=== PATIENT | male | born 2000 | race Caucasian/White ===

== ENCOUNTER 2025-03-30 17:41 | Observation (INO) | payer OTHER, SELFPAY ==
[2025-03-30] VITALS (11 sets, daily range): BP systolic 104–130; BP diastolic 68–91; PULSE 115–122; RESP 12–17; TEMP 36.6–36.8; O2SAT 96–100; BMI 16.2
--- NOTE | ~2025-03-30 | XR_ITS ---
EXAMINATION: XR chest 1V portable 03/30/2025 21:11 INDICATION: Altered mental status PROCEDURE: AP portable chest COMPARISON: No prior studies for comparison. FINDINGS: The lungs are clear. The cardiomediastinal silhouette is within normal limits. There are no pleural effusions. There is no pneumothorax suspected. IMPRESSION: 1: NO ACUTE CARDIOPULMONARY DISEASE. Reviewed, dictated and finalized at location O. KEN HANDLER
--- NOTE | ~2025-03-30 | CT_ITS ---
EXAMINATION: CT chest abdomen pelvis w con DATE: 04/03/2025 23:24 INDICATION: Right upper quadrant abdominal and esophageal pain TECHNIQUE: Computed tomography (CT) of the chest, abdomen, and pelvis was performed with 100 mL Omnipaque-350 intravenous contrast. Automated exposure control and iterative reconstruction technique were employed. The dose-length product was 296.53 mGy-cm. COMPARISON: CT abdomen and pelvis dated 11/29/2024 FINDINGS: CHEST CT: No pneumonia, pulmonary edema or other pulmonary infiltrates. No pleural effusion or pneumothorax. Heart size is normal. No pericardial effusion. Thoracic aorta is normal in caliber with no dissection. Again seen is diffuse wall thickening of the mid to distal esophagus consistent with esophagitis which may relate to reflux. No pathologically enlarged thoracic lymphadenopathy. Mild thoracic dextrocurvature with mild spondylosis. ABDOMEN/PELVIS CT: Liver, gallbladder, spleen, pancreas, left kidney and bilateral adrenal glands are normal. There are couple right renal cysts the larger measuring 2.3 cm. Bowels including the appendix are normal. Bladder is unremarkable. Small amount of nonspecific ascites in the deep pelvis. No pathologically enlarged abdominal or pelvic lymphadenopathy. Mild lumbar spondylosis. IMPRESSION: 1. Persistent diffuse wall thickening of the mid to distal esophagus suspicious for esophagitis which could be secondary to reflux. 2. No acute cardiopulmonary disease. 3. Small amount of nonspecific ascites in the deep pelvis. Reviewed, dictated and finalized at location A. NESS PROCESS REPRESENTATIVE
[2025-03-30 18:13] LABS: Hematocrit 47.8 % (42.0-52.0); Hemoglobin 16.4 g/dL (14.0-18.0); Immature Granulocyte Percent A 1.3 % (0-0.5); Lymphocytes Absolute Auto 1.70 K/mm3 (0.9-3.2); Mean Corpuscular HGB Conc 34.3 g/dl (32-36); Mean Corpuscular Hemoglobin 29.9 pg (26-34); Mean Corpuscular Volume 87.1 fl (80-100); Nucleated Red Blood Cells Absolute Auto 0.000 K/mm3 (0.0-0.012); Nucleated Red Blood Cells Perc 0.0 % (0.0-0.2); Platelet Count Result 436 k/mm3 (150-375); Red Blood Count 5.49 M/mm3 (4.6-6.20); White Blood Count 22.0 K/mm3 (4.5-10.0)
[2025-03-30] MEDS: SODIUM CHLORIDE 0.9% IV 1,000 ML 999 ML IV CONT ×2 (18:15→21:22)
[2025-03-30 18:28] LABS: Alanine Aminotransferase 24 U/L (6-50); Albumin Level 4.8 g/dL (3.5-5.1); Alkaline Phosphatase 134 U/L (38-126); Anion Gap 33 mmol/L (4-12); Aspartate Amino Transferase 25 U/L (17-59); Bilirubin,Total 0.6 mg/dL (0.2-1.3); Blood Urea Nitrogen 31 mg/dL (9-20); Calcium 9.3 mg/dL (8.4-10.2); Carbon Dioxide 8 mmol/L (22-30); Chloride 93 mmol/L (98-107); Estimated CRCL calculation 76 ml/min; Estimated Glomerular Filt Rate > 60; Glucose 623 mg/dL (65-110); Magnesium 2.0 mg/dL (1.6-2.3); Potassium 5.4 mmol/L (3.4-5.0); Sodium 134 mmol/L (137-145); Total Protein 8.2 g/dL (6.3-8.2)
--- NOTE | 2025-03-30 19:31 | ED_ITS ---
HPI - General Adult General Chief complaint: Recheck/Abnormal Lab/Rx Stated complaint: high BG Time Seen by Provider: 03/30/25 19:29 Source: patient and EMS Mode of arrival: EMS Limitations: no limitations History of Present Illness HPI narrative: Patient is homeless, complaining of nausea and vomiting and feeling ill today, type 1 diabetes on insulin, patient does not have a family physician. Patient is telling me that he gets his medicine through the emergency room. Patient is telling me that she been having upper respiratory viral infection for the last 2 weeks, did not see any medical provider for it. Patient main complaint is nausea and vomiting and not feeling well. Related Data Allergies Allergy/AdvReac Type Severity Reaction Status Date / Time Peanut butter Allergy Severe Swelling Uncoded 03/30/25 17:58 of Lip/Tongue/Throat Review of Systems 2 Review of Systems: All systems reviewed & are unremarkable except as noted in HPI and below Exam 2 Narrative: General appearance: Well-developed, well-nourished, lethargic, dry heaves Skin: Normal color Head: Normocephalic, nontraumatic Eyes: Clear conjunctiva ENT: Oropharynx normal, ears normal, nose normal Neck: Supple, nontender Chest and respiratory: Airway patent, no respiratory distress, no accessory muscle use Heart: Regular rate/rhythm Abdomen: Soft, nontender, no organomegaly, quiet bowel sounds Vascular: Normal peripheral pulses, normal capillary refill. Musculoskeletal: Normal range of motion, nontender back Neurologic: Alert and oriented ?3, DIRECTOR OF RETAIL MERCHANDISING is normal as tested, no gross motor deficit Course Consultations Director Of It Operations: I have discussed the care of this patient with the following provider: Dr suggs Vital Signs Vital signs: Vital Signs Temperature 36.6 C 03/30/25 17:31 Pulse Rate 115 H 03/30/25 17:31 Respiratory Rate 16 03/30/25 17:31 Blood Pressure 113/80 03/30/25 17:31 Pulse Oximetry 100 03/30/25 17:31 Oxygen Delivery Room Air 03/30/25 17:31 Temperature 36.6 C 03/30/25 17:31 Pulse Rate 116 H 03/30/25 21:00 Respiratory Rate 17 03/30/25 21:00 Blood Pressure 112/68 03/30/25 21:00 Pulse Oximetry 99 03/30/25 21:00 Oxygen Delivery Room Air 03/30/25 17:31 MDM MDM Narrative Medical decision making narrative: Patient came with DKA like symptoms Type 1 diabetes, noncompliance with medication Vital signs showing heart rate 115 otherwise within normal limit Physical examination showing lethargic patient with dry heaves holding vomiting bag Differential diagnosis: DKA, electrolyte imbalance, dehydration, urinary tract infection, pneumonia, noncompliance with medication, homelessness Blood workup today includes CBC, CMP, beta hydroxybutyric acid, hemoglobin A1c showed WBC 22, platelet 436, potassium 5.4, anion gap 33, glucose 623, phosphorus 5.7, bicarb 8, pH by venous blood gas is 7.23 Differential Diagnosis Differential Diagnosis: As above Medical Records I have reviewed the following patient records and this information was taken into consideration when formulating the assessment and plan.: previous labs, previous ER visits, previous hospitalizations and previous clinic visits Lab Data 03/30/25 17:59 03/30/25 17:59 Labs: Lab Results 03/30/25 03/30/25 03/30/25 Range/Units 17:45 17:59 19:51 WBC 22.0 H (4.5-10.0) K/mm3 RBC 5.49 (4.6-6.20) M/mm3 Hgb 16.4 (14.0-18.0) g/dL Hct 47.8 (42.0-52.0) % MCV 87.1 (80-100) fl MCH 29.9 (26-34) pg MCHC 34.3 (32-36) g/dl RDW 12.9 (11.5-14.5) % Plt Count 436 H (150-375) k/mm3 MPV 9.7 (7.4-10.4) fl Immature Gran % (Auto) 1.3 H (0-0.5) % Neut % (Auto) 85.9 H (45.5-73.1) % Lymph % (Auto) 7.7 L (18.3-44.2) % [place] % (Auto) 4.8 (2.6-8.5) % Eos % (Auto) 0.0 (0-4.4) % Baso % (Auto) 0.3 (0.2-1.2) % Lymph # (Auto) 1.70 (0.9-3.2) K/mm3 [place] # (Auto) 1.1 H (0.1-0.6) K/mm3 Eos # (Auto) 0.0 (0-0.3) K/mm3 Baso # (Auto) 0.1 (0.0-0.1) K/mm3 Abs Immat Gran (auto) 0.28 H (0.00-0.031) K/mm3 Absolute Neuts (auto) 18.9 H (1.3-6.7) K/mm3 Absolute Nucleated RBC 0.000 (0.0-0.012) K/mm3 Nucleated RBC % 0.0 (0.0-0.2) % Sodium 134 L (137-145) mmol/L Potassium 5.4 H (3.4-5.0) mmol/L Chloride 93 L (98-107) mmol/L Carbon Dioxide 8 L (22-30) mmol/L Anion Gap 33 H (4-12) mmol/L BUN 31 H (9-20) mg/dL Creatinine 1.11 (0.7-1.3) mg/dL Estim Creat Clear Calc 76 ml/min Estimated GFR > 60 (59 - ) Glucose 623 H* (65-110) mg/dL POC Capillary Glucose > 500 H* (65-105) mg/dl Hemoglobin A1c > 14.0 H (<5.7) % Calcium 9.3 (8.4-10.2) mg/dL Phosphorus 5.7 H (2.5-4.5) mg/dL Magnesium 2.0 (1.6-2.3) mg/dL Total Bilirubin 0.6 (0.2-1.3) mg/dL AST 25 (17-59) U/L ALT 24 (6-50) U/L Alkaline Phosphatase 134 H (38-126) U/L Total Protein 8.2 (6.3-8.2) g/dL Albumin 4.8 (3.5-5.1) g/dL Beta-Hydroxybutyrate/Acetoacetate 12.50 H (0.02-0.27) mmol/L Urine Color Yellow (Yellow) Urine Appearance Clear (Clear) Urine pH 5.0 (5.0-9.0) Ur Specific [place] 1.027 (1.001-1.035) Urine Protein Negative (Negative) mg/dL Urine Glucose (UA) 3+ H (Negative) mg/dL Urine Ketones 4+ H (Negative) mg/dL Ur Blood (Man) Negative (Negative) Urine Nitrate Negative (Negative) Urine Bilirubin Negative (Negative) Urine Urobilinogen 0.2 (<2.0) mg/dL Leukocyte Esterase Rfl Negative (Negative) ALKA/UL Influenza A (RT-PCR) Influenza B (RT-PCR) RSV (RT-PCR) SARS-CoV-2 RNA (RT-PCR) 03/30/25 03/30/25 03/30/25 Range/Units 20:40 21:43 21:53 WBC (4.5-10.0) K/mm3 RBC (4.6-6.20) M/mm3 Hgb (14.0-18.0) g/dL Hct (42.0-52.0) % MCV (80-100) fl MCH (26-34) pg MCHC (32-36) g/dl RDW (11.5-14.5) % Plt Count (150-375) k/mm3 MPV (7.4-10.4) fl Immature Gran % (Auto) (0-0.5) % Neut % (Auto) (45.5-73.1) % Lymph % (Auto) (18.3-44.2) % [place] % (Auto) (2.6-8.5) % Eos % (Auto) (0-4.4) % Baso % (Auto) (0.2-1.2) % Lymph # (Auto) (0.9-3.2) K/mm3 [place] # (Auto) (0.1-0.6) K/mm3 Eos # (Auto) (0-0.3) K/mm3 Baso # (Auto) (0.0-0.1) K/mm3 Abs Immat Gran (auto) (0.00-0.031) K/mm3 Absolute Neuts (auto) (1.3-6.7) K/mm3 Absolute Nucleated RBC (0.0-0.012) K/mm3 Nucleated RBC % (0.0-0.2) % Sodium Pending (137-145) mmol/L Potassium Pending (3.4-5.0) mmol/L Chloride Pending (98-107) mmol/L Carbon Dioxide Pending (22-30) mmol/L Anion Gap Pending (4-12) mmol/L BUN Pending (9-20) mg/dL Creatinine Pending (0.7-1.3) mg/dL Estim Creat Clear Calc Pending ml/min Estimated GFR Pending (59 - ) Glucose Pending (65-110) mg/dL POC Capillary Glucose 376 H 293 H (65-105) mg/dl Hemoglobin A1c (<5.7) % Calcium Pending (8.4-10.2) mg/dL Phosphorus Pending (2.5-4.5) mg/dL Magnesium Pending (1.6-2.3) mg/dL Total Bilirubin (0.2-1.3) mg/dL AST (17-59) U/L ALT (6-50) U/L Alkaline Phosphatase (38-126) U/L Total Protein (6.3-8.2) g/dL Albumin (3.5-5.1) g/dL Beta-Hydroxybutyrate/Acetoacetate (0.02-0.27) mmol/L Urine Color (Yellow) Urine Appearance (Clear) Urine pH (5.0-9.0) Ur Specific [place] (1.001-1.035) Urine Protein (Negative) mg/dL Urine Glucose (UA) (Negative) mg/dL Urine Ketones (Negative) mg/dL Ur Blood (Man) (Negative) Urine Nitrate (Negative) Urine Bilirubin (Negative) Urine Urobilinogen (<2.0) mg/dL Leukocyte Esterase Rfl (Negative) ALKA/UL Influenza A (RT-PCR) Pending Influenza B (RT-PCR) Pending RSV (RT-PCR) Pending SARS-CoV-2 RNA (RT-PCR) Pending ABG Data ABG results: 03/30/25 20:30 VBG pH 7.239 L* VBG pCO2 25.3 L* VBG pO2 56.8 H VBG HCO3 10.6 L O2 Delivery Device Room air O2 Liters/Min Not Reportable FiO2 21 Imaging Data Radiologist's impression: ITS Impressions Chest X-Ray 03/30/25 21:16 IMPRESSION: 1: NO ACUTE CARDIOPULMONARY DISEASE. Critical Care Time Critical Care Time Critical Care Time: Yes Time Type: Intermittent Initial evaluation, discuss w/ involved parties, attempting to gather old records: 10 minutes Documenting medical record: 10 minutes Review of results (EKG's, labs, imaging): 5 minutes Serial repeat bedside evaluation: 15 minutes Discussing case with multiple memebers of the care team and consultants: 10 minutes Total Critical Care Time: 50 Discharge Plan Discharge Clinical Impression: DKA, type 1 Patient Disposition: Still a Patient Condition: Stable Patient Language: Turkmen
[2025-03-30] MEDS: SODIUM CHLORIDE 0.9% IV 1,000 ML 1500 ML IV CONT (20:02)
[2025-03-30] MEDS: INSULIN HUMAN REGULAR (*BKC) 100 UNITS/ML 8 UNITS IV PUSH (20:04)
[2025-03-30 20:06] LABS: Add Urine Microscopic? NO; Appearance Urine Clear (Clear); Glucose Urine UA 3+ mg/dL (Negative); Leukocyte Esterase Ur Negative LEU/UL (Negative); Nitrate Urine Negative (Negative); Specific Grav Ur 1.027 (1.001-1.035)
--- NOTE | 2025-03-30 20:16 | PCRCNOTE ---
patient refused ABG. Provider notified. VBG ordered per provider
--- NOTE | 2025-03-30 20:23 | PC.NURSE ---
Patient actively vomiting dark emesis at intervals
[2025-03-30 20:33] LABS: Fractional Inspired Oxygen 21 %; HCO3 VBG 10.6 mEq/l (24.0-30.0); PO2 VBG 56.8 mmHg (35.0-45.0)
[2025-03-30 20:35] LABS: PCO2 VBG 25.3 mmHg (42.0-48.0); pH VBG 7.239 (7.300-7.400)
[2025-03-30] MEDS: INSULIN HUMAN REGULAR (*BKC) 100 UNITS in SODIUM CHLORIDE 0.9% IV 99 ML 5.5 UNITS IV CONT (20:39)
[2025-03-30] MEDS: ONDANSETRON INJ 4 MG/2 ML VIAL IV PUSH ×2 (20:42→23:40)
[2025-03-30 20:56] LABS: Beta-Hydroxybutyrate/Acetoace. 12.50 mmol/L (0.02-0.27); Hemoglobin A1C > 14.0 % (<5.7)
[2025-03-30 22:12] LABS: Anion Gap 17 mmol/L (4-12); Blood Urea Nitrogen 27 mg/dL (9-20); Calcium 8.4 mg/dL (8.4-10.2); Carbon Dioxide 16 mmol/L (22-30); Chloride 106 mmol/L (98-107); Estimated CRCL calculation 102 ml/min; Estimated Glomerular Filt Rate > 60; Glucose 291 mg/dL (65-110); Magnesium 1.8 mg/dL (1.6-2.3); Potassium 4.0 mmol/L (3.4-5.0); Sodium 139 mmol/L (137-145)
[2025-03-30 22:40] LABS: Influenza A QL RT-PCR Negative (Negative); Influenza B QL RT-PCR Negative (Negative); RSV RNA, RT-PCR Negative (Negative); SARS-CoV-2 RNA PCR Negative (Negative)
--- NOTE | 2025-03-30 23:06 | WPCEDHO ---
ED Hand Off Checklist All vitals saved:y IV Site documented:y All med administrations documented:y Triage Note Triage Note Patient is homeless-but staying 03/30/25 17:31 with a cousin. Called EMS with Nausea/vomiting-feeling sick. Type 1 DM- lethargic. EMS reports patient told them he took 44units Lantus insulin at 0100 and took 12units regular as a correction BGL reading HIGH. 4mg Zofran, 800ml LR [employer]MENT [employer]ER. Reports that he went drinking 2 nights ago. EMS reports that patient is lethargic but A/O x 4. Patient answers questions with prompting. Allergies Peanut butter Allergy (Severe, Uncoded 03/30/25 17:58) Swelling of Lip/Tongue/Throat Active Medications including assessments/comments Insulin Human Regular 100 (units/ Sodium Chloride) 100 mls @ 5 mls/hr IV CONT .Q20H REGI; Protocol Last Titration: 03/30/25 21:45 Dose: 5 units/hr, 5 mls/hr Documented By: ALOK Co-signed By: ALANIS Infusion/Titration Document 03/30/25 21:45 TLB (Rec: 03/30/25 21:47 TLB [id number]) Co-signed By Ester Braden, cardiology clinical consultant IV Site Peripheral Access Left Arm, Upper Intake 6.1 Cumulative Intake ( 6.1 bag) Cumulative Intake ( 6.1 Rx) Container Volume 93.9 Waste Amount 0 Dosing Dose Rate 5 Infusion Rate 5 Cumulative Dose 6.1 Increase/Decrease Decreased Elapsed Time Elapsed Time ( 1h 6m minutes) MAR IV Insulin Document 03/30/25 21:45 TLB (Rec: 03/30/25 21:47 TLB [id number]) Co-signed By Ester Braden, RIKKI Reason for Administration IV Insulin Infusion DKA Protocol - Reason for Administration IV Insulin Action/Checks IV Insulin Action Titrated - Blood Glucose Verified and Dose Adjusted per Guidelines DKA Trends Insulin Infusion - Blood Glucose Trend Downward DKA Trends Admin: 03/30/25 20:39 Dose: 5.5 units/hr, 5.5 mls/hr Documented By: ALOK Co-signed By: MMRanjeet Comments: Bedside glucose-376 Infusion/Titration Document 03/30/25 20:39 TLRanjeet (Rec: 03/30/25 20:41 TLB [id number]) Co-signed By Alma Gomez, cardiology clinical consultant IV Site Peripheral Access Left Arm, Upper Container Volume 100 Waste Amount 0 Dosing Dose Rate 5.5 Infusion Rate 5.5 Increase/Decrease Started Elapsed Time Elapsed Time ( 0m minutes) MAR IV Insulin Document 03/30/25 20:39 TLB (Rec: 03/30/25 20:41 TLB [id number]) Co-signed By Alma Gomez RN Reason for Administration IV Insulin Infusion DKA Protocol - Reason for Administration IV Insulin Action/Checks IV Insulin Action Initiated Administered/Completed Medications Discontinued Medications Sodium Chloride (Normal Saline Iv) 1,000 mls @ 999 mls/hr IV CONT .Q1H1M STA Stop: 03/30/25 18:56 Last Infusion: 03/30/25 19:20 Dose: Infused Documented By: Admin: 03/30/25 18:15 Dose: 999 mls/hr Documented By: ALOK Sodium Chloride (Normal Saline Iv) 1,000 mls @ 1,500 mls/hr IV CONT .Q40M STA Stop: 03/30/25 20:11 Last Infusion: 03/30/25 20:42 Dose: Infused Documented By: Admin: 03/30/25 20:02 Dose: 1,500 mls/hr Documented By: ALOK Sodium Chloride (Normal Saline Iv) Confirm Administered Dose 500 mls @ as directed .ROUTE .STK-MED ONE Stop: 03/30/25 19:58 Last Admin: 03/30/25 20:06 Dose: Not Given Documented By: TLB Non-Admin Reason: No Dose Required Sodium Chloride (Normal Saline Iv) 1,000 mls @ 999 mls/hr IV CONT .Q1H1M STA Stop: 03/30/25 22:01 Last Infusion: 03/30/25 22:23 Dose: Infused Documented By: Admin: 03/30/25 21:22 Dose: 999 mls/hr Documented By: ALOK Insulin Human Regular (Insulin Human Regular (*Bkc) 100 Units/Ml) 8 units IV PUSH ONCE ONE Stop: 03/30/25 19:33 Last Admin: 03/30/25 20:04 Dose: 8 units Documented By: TLB Co-signed By: MMB Ondansetron HCl (Ondansetron Inj 4 Mg/2 Ml Vial) 4 mg IV PUSH ONCE STA Stop: 03/30/25 20:35 Last Admin: 03/30/25 20:42 Dose: 4 mg Documented By: TLB Notes 03/30/25 20:23 Nurse Note by Sneha Mcdonald Patient actively vomiting dark emesis at intervals Initialized on 03/30/25 20:23 - END OF NOTE 03/30/25 20:16 Respiratory Therapy Note by Roxi Toney patient refused ABG. Provider notified. VBG ordered per provider Initialized on 03/30/25 20:16 - END OF NOTE Interventions/Assessments General Assessment Start: 03/30/25 17:20 Freq: Status: Active Protocol: Document 03/30/25 17:56 TLB (Rec: 03/30/25 17:56 TLB [id number]) GA Gastrointestinal Assessment Gastrointestinal Nausea,Vomiting Symptoms IV / Saline Lock, Insert Start: 03/30/25 17:20 Freq: Status: Active Protocol: Document 03/30/25 17:55 TLB (Rec: 03/30/25 17:55 TLB [id number]) IV Assessment Peripheral Access Left Arm, Upper IV Catheter Access Initiated Before Arrival Catheter Gauge 20 IV Insertion 1 Attempts IV Site Assessment WNL IV Care and Access Locked Maintenance IV / Saline Lock, Insert Start: 03/30/25 17:56 Freq: STAT Status: Active Protocol: Document 03/30/25 18:07 TLB (Rec: 03/30/25 18:07 TLB [id number]) IV Assessment Peripheral Access Left Arm, Upper IV Catheter Access Initiated Before Arrival Last Vital Signs Temperature 98.3 F 03/30/25 22:31 Pulse Rate 121 H 03/30/25 22:31 Respiratory Rate 17 03/30/25 22:31 Pulse Oximetry 98 03/30/25 22:31 Blood Pressure 120/83 03/30/25 22:31 Blood Pressure Mean 94 03/30/25 22:31 Oxygen Delivery Room Air 03/30/25 17:31 Weight 58.4 kg 03/30/25 17:31 Last Result - Abnormals Only WBC 22.0 K/mm3 (4.5-10.0) H 03/30/25 17:59 Plt Count 436 k/mm3 (150-375) H 03/30/25 17:59 Immature Gran % (Auto) 1.3 % (0-0.5) H 03/30/25 17:59 Neut % (Auto) 85.9 % (45.5-73.1) H 03/30/25 17:59 Lymph % (Auto) 7.7 % (18.3-44.2) L 03/30/25 17:59 [place] # (Auto) 1.1 K/mm3 (0.1-0.6) H 03/30/25 17:59 Abs Immat Gran (auto) 0.28 K/mm3 (0.00-0.031) H 03/30/25 17:59 Absolute Neuts (auto) 18.9 K/mm3 (1.3-6.7) H 03/30/25 17:59 VBG pH 7.239 (7.300-7.400) L* 03/30/25 20:30 VBG pCO2 25.3 mmHg (42.0-48.0) L* 03/30/25 20:30 VBG pO2 56.8 mmHg (35.0-45.0) H 03/30/25 20:30 VBG HCO3 10.6 mEq/l (24.0-30.0) L 03/30/25 20:30 Sodium 134 mmol/L (137-145) L 03/30/25 17:59 Potassium 5.4 mmol/L (3.4-5.0) H 03/30/25 17:59 Chloride 93 mmol/L (98-107) L 03/30/25 17:59 Carbon Dioxide 16 mmol/L (22-30) L 03/30/25 21:53 Anion Gap 17 mmol/L (4-12) H 03/30/25 21:53 BUN 27 mg/dL (9-20) H 03/30/25 21:53 Glucose 291 mg/dL (65-110) H 03/30/25 21:53 POC Capillary Glucose 244 mg/dl (65-105) H 03/30/25 23:02 Hemoglobin A1c > 14.0 % (<5.7) H 03/30/25 17:59 Phosphorus 5.7 mg/dL (2.5-4.5) H 03/30/25 17:59 Alkaline Phosphatase 134 U/L (38-126) H 03/30/25 17:59 Beta-Hydroxybutyrate/Acetoacetate 12.50 mmol/L (0.02-0.27) H 03/30/25 17:59 Urine Glucose (UA) 3+ mg/dL (Negative) H 03/30/25 19:51 Urine Ketones 4+ mg/dL (Negative) H 03/30/25 19:51 Most Recent Suicide Severity Rating Suicide Severity Rating NO RISK INDICATED 03/30/25 17:31
--- NOTE | 2025-03-30 23:10 | P.HP_ITS ---
H&P: HPI History of Present Illness Date/Time: 03/30/25 23:10 Chief Complaint: Feeling sick Narrative: 24-year-old homeless male with past medical history of type 1 diabetes mellitus chronically uncontrolled diabetes mellitus due presented to the ER via EMS due to feeling ill. Patient reportedly took 44 units of Lantus and 12 units of shorter acting insulin at 13:00 today. His blood glucose on Accu-Chek for EMS was reading high. He received 800 mL of LR and Zofran prior to arrival to the hospital. He when out drinking 2 nights ago. The patient does not have a family physician. He is homeless but with staying with a friend. He has been getting his medications by visiting ERs. The patient arrived to the ICU with discharge papers from [facility] which demonstrates he is post be on medications including Lantus 15 units nightly, moderate sliding scale insulin and 3 units of lispro with meals. He is also supposed be on gabapentin 400 mg b.i.d. prazosin 3 mg q.h.s. venlafaxine. All of this information was obtained from ER documentation and review of the records from [place]. The patient refuses to answer any questions. He states that he does not want to be bothered and initially was refusing all exam whatsoever. He reluctantly agreed to allow we did listen to his heart and lungs. He refused to answer any questions despite multiple attempts of educating the patient about the importance of a complete exam. Initially when I went to evaluate the patient the 1st time he did answer orientation questions. He was oriented to person place and time but he told me that he was 26 years old. The patient was oriented but intermittently answering questions in a bizarre fashion. Stating that he needed to ?turn off the game? or other random phrases. Review of Systems 2 Review of Systems: Review of systems unobtainable due to lack of patient cooperation [facility] Past Medical History Medical History (Updated 03/31/25 @ 00:41 by Jeniffer Wu DO) Uncontrolled type 1 diabetes mellitus Surgical History Surgical History (Updated 03/31/25 @ 03:53 by Jeniffer Wu DO) Surgical history unknown Family History Family History (Updated 03/31/25 @ 03:54 by Jeniffer Wu DO) Other Unknown family medical history Social History Social History (Updated 03/31/25 @ 03:54 by Jeniffer Wu DO) Social History: The patient is homeless. His urine drug screen was negative but he refuses answer questions as to substance use. He did inform the ER that he has been drinking 2 days ago. Alcohol intake: current Substance use type: unknown Spiritual care concerns: No Meds Home Medications and Allergies Allergies Allergy/AdvReac Type Severity Reaction Status Date / Time adhesive tape Allergy Rash Unverified 03/30/25 23:52 Peanut butter Allergy Severe Swelling Uncoded 03/30/25 17:58 of Lip/Tongue/Throat Vital Signs Vital Signs - 24 hr 03/30/25 17:31 03/30/25 18:00 03/30/25 18:30 Temperature 97.8 F Pulse Rate 115 H 116 H 118 H Respiratory Rate 16 14 12 Blood Pressure 113/80 104/79 130/83 Pulse Oximetry 100 100 100 Oxygen Delivery Room Air 03/30/25 19:00 03/30/25 20:00 03/30/25 21:00 Temperature Pulse Rate 121 H 117 H 117 H Respiratory Rate 15 15 13 Blood Pressure 127/91 H 120/80 112/68 Pulse Oximetry 99 99 98 Oxygen Delivery 03/30/25 21:00 03/30/25 21:01 03/30/25 21:31 Temperature Pulse Rate 116 H 116 H 115 H Respiratory Rate 17 12 14 Blood Pressure 112/68 112/68 114/79 Pulse Oximetry 99 99 Oxygen Delivery 03/30/25 22:16 03/30/25 22:31 Temperature 98.3 F Pulse Rate 119 H 121 H Respiratory Rate 15 17 Blood Pressure 120/83 Pulse Oximetry 98 98 Oxygen Delivery Exam 2 Narrative: Weight 50.4 kg BMI 15.7 Const: Other: This several, poor hygiene, cachectic, patient is lying on his right side in the semi flower position the patient smell strongly of ketones and body odor HENMT: Other: Lips are dry, head is normocephalic atraumatic on visual exam further exam not possible given patient's refusal Resp: Other: No tachypnea, no increased work of breathing, decreased breath sounds at the bases posteriorly likely due to lack of effort Cardio: Other: Sinus tachycardia, no murmur, otherwise unable to assess as patient refuses the remainder of physical exam GI: Other: Concave, Normoactive bowel sounds otherwise unable to assess due to lack of cooperation Skin: Other: Patient has discoloration of his abdomen abdominal wall pink in blue in color possibly staining due to dyes, patient has dirt under his fingernails skin is warm to touch Neuro: Other: Alert oriented to person place and time, refuses to answer questions regarding situation, believes that he is 26 years old, speech is clear, no obvious facial asymmetry but exam extremely limited, the patient was unstable on his feet when he stood up to use the bedside commode but gait not evaluated Extrem: Other: Patient has generalized muscle wasting, unable to assess feet or strength Psych: Other: Hostile, belligerent, uncooperative Results Labs Labs: Laboratory Tests 03/30/25 17:59 03/30/25 21:53 03/30/25 03/30/25 03/30/25 17:45 17:59 19:51 WBC 22.0 H RBC 5.49 Hgb 16.4 Hct 47.8 MCV 87.1 MCH 29.9 MCHC 34.3 RDW 12.9 Plt Count 436 H MPV 9.7 Immature Gran % (Auto) 1.3 H Neut % (Auto) 85.9 H Lymph % (Auto) 7.7 L [place] % (Auto) 4.8 Eos % (Auto) 0.0 Baso % (Auto) 0.3 Lymph # (Auto) 1.70 Sequoyah # (Auto) 1.1 H Eos # (Auto) 0.0 Baso # (Auto) 0.1 Abs Immat Gran (auto) 0.28 H Absolute Neuts (auto) 18.9 H Absolute Nucleated RBC 0.000 Nucleated RBC % 0.0 VBG pH VBG pCO2 VBG pO2 VBG HCO3 O2 Delivery Device O2 Liters/Min FiO2 Sodium 134 L Potassium 5.4 H Chloride 93 L Carbon Dioxide 8 L Anion Gap 33 H BUN 31 H Creatinine 1.11 Estim Creat Clear Calc 76 Estimated GFR > 60 Glucose 623 H* POC Capillary Glucose > 500 H* Hemoglobin A1c > 14.0 H Calcium 9.3 Phosphorus 5.7 H Magnesium 2.0 Total Bilirubin 0.6 AST 25 ALT 24 Alkaline Phosphatase 134 H Total Protein 8.2 Albumin 4.8 Beta-Hydroxybutyrate/Acetoacetate 12.50 H Urine Color Yellow Urine Appearance Clear Urine pH 5.0 Ur Specific [place] 1.027 Urine Protein Negative Urine Glucose (UA) 3+ H Urine Ketones 4+ H Ur Blood (Man) Negative Urine Nitrate Negative Urine Bilirubin Negative Urine Urobilinogen 0.2 Leukocyte Esterase Rfl Negative Influenza A (RT-PCR) Influenza B (RT-PCR) RSV (RT-PCR) SARS-CoV-2 RNA (RT-PCR) 03/30/25 03/30/25 03/30/25 20:30 20:40 21:43 WBC RBC Hgb Hct MCV MCH MCHC RDW Plt Count MPV Immature Gran % (Auto) Neut % (Auto) Lymph % (Auto) [place] % (Auto) Eos % (Auto) Baso % (Auto) Lymph # (Auto) [place] # (Auto) Eos # (Auto) Baso # (Auto) Abs Immat Gran (auto) Absolute Neuts (auto) Absolute Nucleated RBC Nucleated RBC % VBG pH 7.239 L* VBG pCO2 25.3 L* VBG pO2 56.8 H VBG HCO3 10.6 L O2 Delivery Device Room air O2 Liters/Min Not Reportable FiO2 21 Sodium Potassium Chloride Carbon Dioxide Anion Gap BUN Creatinine Estim Creat Clear Calc Estimated GFR Glucose POC Capillary Glucose 376 H 293 H Hemoglobin A1c Calcium Phosphorus Magnesium Total Bilirubin AST ALT Alkaline Phosphatase Total Protein Albumin Beta-Hydroxybutyrate/Acetoacetate Urine Color Urine Appearance Urine pH Ur Specific Arthur Urine Protein Urine Glucose (UA) Urine Ketones Ur Blood (Man) Urine Nitrate Urine Bilirubin Urine Urobilinogen Leukocyte Esterase Rfl Influenza A (RT-PCR) Influenza B (RT-PCR) RSV (RT-PCR) SARS-CoV-2 RNA (RT-PCR) 03/30/25 03/30/25 21:53 23:02 WBC RBC Hgb Hct MCV MCH MCHC RDW Plt Count MPV Immature Gran % (Auto) Neut % (Auto) Lymph % (Auto) [place] % (Auto) Eos % (Auto) Baso % (Auto) Lymph # (Auto) [place] # (Auto) Eos # (Auto) Baso # (Auto) Abs Immat Gran (auto) Absolute Neuts (auto) Absolute Nucleated RBC Nucleated RBC % VBG pH VBG pCO2 VBG pO2 VBG HCO3 O2 Delivery Device O2 Liters/Min FiO2 Sodium 139 Potassium 4.0 Chloride 106 Carbon Dioxide 16 L Anion Gap 17 H BUN 27 H Creatinine 0.81 Estim Creat Clear Calc 102 Estimated GFR > 60 Glucose 291 H POC Capillary Glucose 244 H Hemoglobin A1c Calcium 8.4 Phosphorus 2.7 Magnesium 1.8 Total Bilirubin AST ALT Alkaline Phosphatase Total Protein Albumin Beta-Hydroxybutyrate/Acetoacetate Urine Color Urine Appearance Urine pH Ur Specific Arthur Urine Protein Urine Glucose (UA) Urine Ketones Ur Blood (Man) Urine Nitrate Urine Bilirubin Urine Urobilinogen Leukocyte Esterase Rfl Influenza A (RT-PCR) Negative Influenza B (RT-PCR) Negative RSV (RT-PCR) Negative SARS-CoV-2 RNA (RT-PCR) Negative Impressions Chest X-Ray 03/30/25 21:16 IMPRESSION: 1: NO ACUTE CARDIOPULMONARY DISEASE. Telemetry reviewed and interpreted demonstrated sinus tachycardia Attestation: I personally reviewed all lab results Critical Care Time Critical Care Time Critical Care Time: Yes Initial evaluation, discuss w/ involved parties, attempting to gather old records: 10 minutes Documenting medical record: 10 minutes Review of results (EKG's, labs, imaging): 15 minutes Serial repeat bedside evaluation: N/A Discussing case with multiple memebers of the care team and consultants: 5 minutes Total Critical Care Time: 40 Critical Care Time Overview: Due to a high probability of clinically significant, life threatening deterioration, the patient required my highest level of preparedness to intervene emergently and I personally spent this critical care time directly and personally managing the patient. This critical care time included obtaining a history; examining the patient; pulse oximetry; ordering and review of studies; arranging urgent treatment with development of a management plan; evaluation of patient's response to treatment; frequent reassessment; and discussions with other providers. It was exclusive of separately billable procedures and treating other patients and teaching time. Please see Assessment and Plan section and the rest of the note for further information on patient assessment and treatment. Quality VTE Prophylaxis VTE prophylaxis: pharmacologic ordered (Lovenox 40 mg subQ daily) Assessment and Plan Assessment and plan (1) DKA, type 1: Qualifiers: Diabetes mellitus complication detail: without coma Qualified Code(s): E10.10 - Type 1 diabetes mellitus with ketoacidosis without coma Code(s): E10.10 - Type 1 diabetes mellitus with ketoacidosis without coma Status: Acute (2) Severe protein-calorie malnutrition: Code(s): E43 - Unspecified severe protein-calorie malnutrition Status: Acute (3) Homeless single person: Code(s): Z59.00 - Homelessness unspecified Status: Acute Plan Patient has DKA with chronically uncontrolled diabetes from noncompliance with medical follow-up. Ketosis is likely multifactorial with component of starvation ketosis and diabetic ketosis. Patient has been admitted to the ICU and placed on insulin drip and IV fluids with adjustments per standard DKA protocol. Will monitor serial electrolyte panels for monitoring until gap closure and normalization of serum bicarb. community nutrition educator has been consulted. Merchandise Pickup/Receiving Associate has been consulted. Will monitor strict I&O's. Patient has severe protein calorie malnutrition and muscle wasting due to what is likely chronic ketotic state and uncontrolled diabetes. Dietitian has been consulted and the importance of compliance with diabetic medications has been discussed in detail. Care coordination has been consulted persistence with financial an medication resources. Patient does have leukocytosis and tachycardia likely due to volume depletion/dehydration. Although leukocytosis is higher than expect just from dehydration. Will monitor closely for other signs of infection. Chest x-ray was negative for pulmonary process. UA was negative for evidence of infection. Hospitalist MIPS Advance Care Plan I have confirmed that the patient's Advanced Care Plan is present, code status is documented, or surrogate decision maker is listed in patient medical record.: Yes Medication Reconciliation I have utilized all available resources to obtain, update and review the patients current medications (includes all prescriptions, OTC, herbals, cannabis, and nutritional supplements).: Yes
[2025-03-30] MEDS: KCL 20 MEQ/D5/0.45% SOD CHL 1,000 ML 150 ML IV CONT (23:35)
--- NOTE | 2025-03-30 23:50 | ADMGEN ---
This patient, Denton Ring, was admitted to Intensive Care Unit-4. Patient/family oriented to hospital policies and general routines including ID bracelet, bed and alarms, visiting hours, pain management, procedures, bathroom and other care routines, personal items, smoking policy, room service/diet, and visiting hours. Information on how to activate the Rapid Response Team has been discussed. Patient/Family are encouraged to report perceived risks to care and to ask questions if they do not understand what they are told or what they should do. Received report from Sneha @[id number], patient arrived at 2325 via stretcher with Rn at bedside.
[2025-03-31] VITALS (18 sets, daily range): BP systolic 103–135; BP diastolic 64–87; PULSE 74–120; RESP 11–18; TEMP 36.3–37.6; O2SAT 95–100; BMI 16.2
[2025-03-31 01:47] LABS: Cannabinoid Screen Urine Negative (Negative)
[2025-03-31 01:50] LABS: MRSA (PCR) NOT DETECTED (NOT DETECTE)
--- NOTE | 2025-03-31 02:36 | PC.NURSE ---
Patient refusing to wear pulse oximetry device.
[2025-03-31 02:40] LABS: Hematocrit 37.7 % (42.0-52.0); Hemoglobin 13.4 g/dL (14.0-18.0); Immature Granulocyte Percent A 0.6 % (0-0.5); Lymphocytes Absolute Auto 2.64 K/mm3 (0.9-3.2); Mean Corpuscular HGB Conc 35.5 g/dl (32-36); Mean Corpuscular Hemoglobin 29.6 pg (26-34); Mean Corpuscular Volume 83.4 fl (80-100); Nucleated Red Blood Cells Absolute Auto 0.000 K/mm3 (0.0-0.012); Nucleated Red Blood Cells Perc 0.0 % (0.0-0.2); Platelet Count Result 366 k/mm3 (150-375); Red Blood Count 4.52 M/mm3 (4.6-6.20); White Blood Count 16.3 K/mm3 (4.5-10.0)
[2025-03-31 03:10] LABS: Anion Gap 9 mmol/L (4-12); Blood Urea Nitrogen 22 mg/dL (9-20); Calcium 8.7 mg/dL (8.4-10.2); Carbon Dioxide 20 mmol/L (22-30); Chloride 109 mmol/L (98-107); Estimated CRCL calculation 118 ml/min; Estimated Glomerular Filt Rate > 60; Glucose 195 mg/dL (65-110); Potassium 4.1 mmol/L (3.4-5.0); Sodium 138 mmol/L (137-145)
[2025-03-31] MEDS: KCL 20 MEQ/D5/0.45% SOD CHL 1,000 ML 150 ML IV CONT (06:04)
[2025-03-31] MEDS: INSULIN GLARGINE (*BKC) 100 UNITS/ML 15 UNITS SUB-Q (07:49)
[2025-03-31] MEDS: ONDANSETRON INJ 4 MG/2 ML VIAL IV PUSH (08:02)
[2025-03-31] MEDS: ENOXAPARIN 40 MG/0.4 ML SYRINGE SUB-Q (08:05)
[2025-03-31 08:17] LABS: Hematocrit 39.5 % (42.0-52.0); Hemoglobin 14.0 g/dL (14.0-18.0); Mean Corpuscular HGB Conc 35.4 g/dl (32-36); Mean Corpuscular Hemoglobin 29.7 pg (26-34); Mean Corpuscular Volume 83.9 fl (80-100); Platelet Count Result 373 k/mm3 (150-375); Red Blood Count 4.71 M/mm3 (4.6-6.20); White Blood Count 16.5 K/mm3 (4.5-10.0)
[2025-03-31] MEDS: INSULIN GLARGINE (*BKC) 100 UNITS/ML 20 UNITS SUB-Q (08:19)
--- NOTE | 2025-03-31 08:20 | P.CONIN_ITS ---
Assessment and Plan Assessment and plan (1) Homeless single person: Code(s): Z59.00 - Homelessness unspecified Status: Acute (2) Severe protein-calorie malnutrition: Code(s): E43 - Unspecified severe protein-calorie malnutrition Status: Acute (3) DKA, type 1: Qualifiers: Diabetes mellitus complication detail: without coma Qualified Code(s): E10.10 - Type 1 diabetes mellitus with ketoacidosis without coma Code(s): E10.10 - Type 1 diabetes mellitus with ketoacidosis without coma Status: Acute Plan 1. Neurologically: Patient is somnolent but arousable poorly cooperative. Nonfocal 2. Cardiovascular sinus rhythm. 3. Respiratory: Upper respiratory symptoms. No definite evidence of bacterial infection most likely this is a viral process. No antibiotics prescribed. He is afebrile 4. GI: No further nausea vomiting. Will start p.o. intake. 5. and renal: Volume depletion seems to have resolved. Will discontinue IV fluids once he starts taking p.o. 6. Endocrine: DKA due to noncompliance. Will restart Lantus and sliding scale insulin. Discontinue insulin drip. 7. DVT prophylaxis: Lovenox 8. Hematologically: Leukocytosis is present which is expected. Hemoglobin and platelet count are normal. 9. Id: Upper respiratory symptoms most likely viral. No definite evidence of bacterial infection. Chest x-ray did not show any infiltrates Time Spent with Patient Time with patient: 45 - 74 minutes Case Technician Consult Note Consult date: 03/31/25 Time Seen: 08:20 Reason for consult: Diabetes ketoacidosis, volume depletion HPI: Denton Ring is a 24 year old male who is essentially homeless and does not have assets to buy insulin. He is constantly admitted because of DKA. His poor historian therefore the history is limited. Apparently was recently discharged from another facility after developing DKA. He complains of having obstructive nasal passages for a few days. Denies any cough or shortness of breath. He did have some anorexia nausea vomiting recent for which he came to the emergency room. Symptoms since to have subsided and he wants to eat now Review of Systems 2 Review of Systems: Patient is not cooperative with symptoms therefore limited. He complains of ?stuffy ?nasal passages PMFSH Past Medical History Medical History (Updated 03/31/25 @ 00:41 by Jeniffer Wu DO) Uncontrolled type 1 diabetes mellitus Surgical History Surgical History (Updated 03/31/25 @ 03:53 by Jeniffer Wu DO) Surgical history unknown Family History Family History (Updated 03/31/25 @ 03:54 by Jeniffer Wu DO) Other Unknown family medical history Social History Social History (Updated 03/31/25 @ 03:54 by Jeniffer Wu DO) Social History: The patient is homeless. His urine drug screen was negative but he refuses answer questions as to substance use. He did inform the ER that he has been drinking 2 days ago. Alcohol intake: current Substance use type: unknown Spiritual care concerns: No Meds Home Medications and Allergies Allergies Allergy/AdvReac Type Severity Reaction Status Date / Time peanut Allergy Severe Swelling Verified 03/31/25 07:28 of Lip/Tongue/Throat adhesive tape Allergy Rash Unverified 03/30/25 23:52 Vital Signs Vital Signs - 24 hr 03/30/25 17:31 03/30/25 18:00 03/30/25 18:30 Temperature 97.8 F Pulse Rate 115 H 116 H 118 H Respiratory Rate 16 14 12 Blood Pressure 113/80 104/79 130/83 Pulse Oximetry 100 100 100 Oxygen Delivery Room Air 03/30/25 19:00 03/30/25 20:00 03/30/25 21:00 Temperature Pulse Rate 121 H 117 H 117 H Respiratory Rate 15 15 13 Blood Pressure 127/91 H 120/80 112/68 Pulse Oximetry 99 99 98 Oxygen Delivery 03/30/25 21:00 03/30/25 21:01 03/30/25 21:31 Temperature Pulse Rate 116 H 116 H 115 H Respiratory Rate 17 12 14 Blood Pressure 112/68 112/68 114/79 Pulse Oximetry 99 99 Oxygen Delivery 03/30/25 22:16 03/30/25 22:31 03/30/25 23:32 Temperature 98.3 F Pulse Rate 119 H 121 H 122 H Respiratory Rate 15 17 13 Blood Pressure 120/83 114/69 Pulse Oximetry 98 98 96 Oxygen Delivery 03/31/25 00:00 03/31/25 00:00 03/31/25 01:00 Temperature 99.6 F Pulse Rate 118 H 117 H 120 H Respiratory Rate 13 15 Blood Pressure 128/80 133/76 Pulse Oximetry 96 96 Oxygen Delivery 03/31/25 02:00 03/31/25 02:00 03/31/25 04:00 Temperature Pulse Rate 112 H 114 H 109 H Respiratory Rate 14 Blood Pressure 106/64 Pulse Oximetry 95 Oxygen Delivery 03/31/25 04:00 03/31/25 05:00 03/31/25 06:00 Temperature Pulse Rate 110 H 106 H 105 H Respiratory Rate 13 16 Blood Pressure 110/65 120/64 Pulse Oximetry Oxygen Delivery 03/31/25 06:00 03/31/25 07:00 Temperature Pulse Rate 104 H 102 H Respiratory Rate 13 11 L Blood Pressure 108/70 109/81 Pulse Oximetry Oxygen Delivery Exam 2 Narrative: He is somnolent and poorly poor cooperative HENMT: Mouth: Yes dry mucous membranes Eyes: Pupils: Equal, round and reactive pupils present Neck: Neck: no JVD Resp: Effort & Inspection: normal respiratory effort Auscultation: clear to auscultation bilaterally Cardio: Rate: regular rate GI: GI Palp: Yes Soft to palpation Skin: General skin exam: normal color Neuro: Other: Somnolent but interactive and moving symmetrically Extrem: General: normal to inspection Psych: Mental Status: mental status grossly normal Results Labs 03/31/25 08:12 03/31/25 02:35 Labs: Short CBC 03/30/25 03/31/25 03/31/25 Range/Units 17:59 02:35 08:12 WBC 22.0 H 16.3 H 16.5 H (4.5-10.0) K/mm3 Hgb 16.4 13.4 L D 14.0 (14.0-18.0) g/dL Hct 47.8 37.7 L 39.5 L (42.0-52.0) % Plt Count 436 H 366 373 (150-375) k/mm3 BMP 03/30/25 03/30/25 03/31/25 17:59 21:53 02:35 Sodium 134 L 139 138 Potassium 5.4 H 4.0 4.1 Chloride 93 L 106 109 H Carbon Dioxide 8 L 16 L 20 L BUN 31 H 27 H 22 H Creatinine 1.11 0.81 0.72 Glucose 623 H* 291 H 195 H Calcium 9.3 8.4 8.7 Liver Function 03/30/25 Range/Units 17:59 Total Bilirubin 0.6 (0.2-1.3) mg/dL AST 25 (17-59) U/L ALT 24 (6-50) U/L Alkaline Phosphatase 134 H (38-126) U/L Albumin 4.8 (3.5-5.1) g/dL Urine 03/30/25 Range/Units 19:51 Urine Color Yellow (Yellow) Urine Appearance Clear (Clear) Urine pH 5.0 (5.0-9.0) Ur Specific [place] 1.027 (1.001-1.035) Urine Protein Negative (Negative) mg/dL Urine Glucose (UA) 3+ H (Negative) mg/dL
[2025-03-31 08:43] LABS: Alanine Aminotransferase 16 U/L (6-50); Albumin Level 3.8 g/dL (3.5-5.1); Alkaline Phosphatase 112 U/L (38-126); Anion Gap 6 mmol/L (4-12); Aspartate Amino Transferase 19 U/L (17-59); Bilirubin,Total 0.4 mg/dL (0.2-1.3); Blood Urea Nitrogen 19 mg/dL (9-20); Calcium 8.9 mg/dL (8.4-10.2); Carbon Dioxide 24 mmol/L (22-30); Chloride 108 mmol/L (98-107); Estimated CRCL calculation 121 ml/min; Estimated Glomerular Filt Rate > 60; Glucose 140 mg/dL (65-110); Potassium 3.9 mmol/L (3.4-5.0); Sodium 138 mmol/L (137-145); Total Protein 7.1 g/dL (6.3-8.2)
[2025-03-31 09:07] LABS: Albumin Level 3.7 g/dL (3.5-5.1); Magnesium 1.8 mg/dL (1.6-2.3)
--- OUTSIDE RECORDS SUMMARY | 2025-03-31 09:21 | XMS_ITS | Encounter Summary ---
Author Organization [facility] Address [address] [place] [address] Care Team Providers Care Relationship Specialist Name Role Phone Yohana Palomino MD Primary Care Provider [phone] Reason for Visit * Reason Onset Date Comments MEDICATION REFILL 11/05/2017 Encounter Details Date Type Department Care Team (Late st Contact Info) Description 11/05/2017 Refill [facility] Pediatric[facility] - Diabetes [address] [address] Tarah Kirkland MD MEDICATION REFILL Social History Tobacco Use Types Packs/Day Years Used Date Smoking Tobacco: Passive Smo ke Exposure - Never Smoker Smokeless Tobacco: Never Alcohol Use Standard Drinks/Week Comments No 0 (1 standard drink = 0.6 oz pur e alcohol) Sex and Gender Information Value Date Recorded Sex Assigned at Not on file 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 Answer Date of Assessment Author No 10/07/2015 1:37 PM Gita Trammell RN * Is person blind or have serious difficulty seeing? Answer Date of Assessment Author No 10/07/2015 1:37 PM CDT Gita Gentile RN * Does person have serious difficulty walking/climbing stairs? Answer Date of Assessment Author No 10/07/2015 1:37 PM CDT Gita Gentile RN * Does person have difficulty dressing/bathing? Answer Date of Assessment Author No 10/07/2015 1:37 PM CDT Gita Gentile RN * Does person have difficulty doing errands alone? Answer Date of Assessment Author No 10/07/2015 1:37 PM CDT Gita Gentile RN documented as of this encounter Mental Status * Does person have difficulty concentrating/remembering/making decisions? Answer Entry Date Author No 10/07/2015 1:37 PM CDT Gita Gentile RN documented in this encounter Miscellaneous Notes * Telephone Encounter - Kiya Persaud RN - 11/05/2017 3:28 PM CDT PA not required for Annmarie Faulkner, mother has already picked up from pharmacy ([phone]). documented in this encounter Plan of Treatment Not on file documented as of this encounter Visit Diagnoses Not on filedocumented in this encounter Care Teams Relationship Specialist Relationship Specialty Start Date End Date Yohana Palomino MD [id number] [address] PCP - General 09/26/09 07/21/24 documented as of this encounter
--- OUTSIDE RECORDS SUMMARY | 2025-03-31 09:21 | XMS_ITS | Encounter Summary ---
Author Organization [facility] Address [address] [facility] [place] [address] Care Team Providers Care Rv Parts And Service Director Name Role Phone Yohana Palomino MD Primary Care Provider [phone] Reason for Visit * Reason Onset Date Comments MEDICATION REFILL 05/20/2017 Encounter Details Date Type Department Care Team (Late st Contact Info) Description 05/20/2017 Refill [facility] Pediatric[facility] - Endocrinology [address] [place] [address] Genaro Abraham, PLATFORM ARCHITECT-AMALGAMATOR [address] [place] [id number] MEDICATION REFILL Social History Tobacco Use Types Packs/Day Years Used Date Smoking Tobacco: Passive Smo ke Exposure - Never Smoker Smokeless Tobacco: Never Alcohol Use Standard Drinks/Week Comments No 0 (1 standard drink = 0.6 oz pur e alcohol) Sex and Gender Information Value Date Recorded Sex Assigned at Not on file 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 Answer Date of Assessment Author No 10/07/2015 1:37 PM Gita Trammell RN * Is person blind or have serious difficulty seeing? Answer Date of Assessment Author No 10/07/2015 1:37 PM NOLANT Gita Gentile RN * Does person have serious difficulty walking/climbing stairs? Answer Date of Assessment Author No 10/07/2015 1:37 PM NOLANT Gita Gentile RN * Does person have difficulty dressing/bathing? Answer Date of Assessment Author No 10/07/2015 1:37 PM NOLANT Gita Gentile RN * Does person have difficulty doing errands alone? Answer Date of Assessment Author No 10/07/2015 1:37 PM Gita Trammell RN documented as of this encounter Mental Status * Does person have difficulty concentrating/remembering/making decisions? Answer Entry Date Author No 10/07/2015 1:37 PM Gita Trammell RN documented in this encounter Plan of Treatment Not on file documented as of this encounter Visit Diagnoses Diagnosis Uncontrolled type 1 diabetes mellitus without complication documented in this encounter Care Teams Rv Parts And Service Director Relationship Specialty Start Date End Date Yohana Palomino MD [address] [address] PCP - General 09/26/09 07/21/24 documented as of this encounter
--- OUTSIDE RECORDS SUMMARY | 2025-03-31 09:21 | XMS_ITS | Encounter Summary ---
Author Organization [facility] Address [address] [place] [address] Care Team Providers Care Seam Feller Name Role Phone Yohana Palomino MD Primary Care Provider Reason for Visit * Reason Onset Date Comments General 05/29/2019 Encounter Details Date Type Department Care Team (Late st Contact Info) Description 05/29/2019 Telephone [facility] Pediatrics - Diabetes Mgmt [address] [place] [id number] Jose F Hua MD [address] [place] [phone] General Social History Tobacco Use Types Packs/Day Years Used Date Smoking Tobacco: Every Day Cigarettes Smokeless Tobacco: Never Alcohol Use Standard Drinks/Week Comments Not Currently 0 (1 standard drink = 0.6 oz pur e alcohol) Sex and Gender Information Value Date Recorded Sex Assigned at Not on file 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 Answer Date of Assessment Author No 05/27/2019 10:00 AM Edvin Mancuso P, RN * Is person blind or have serious difficulty seeing? Answer Date of Assessment Author No 05/27/2019 10:00 AM Edvin Mancuso RN * Does person have serious difficulty walking/climbing stairs? Answer Date of Assessment Author No 05/27/2019 10:00 AM dEvin Mancuso RN * Does person have difficulty dressing/bathing? Answer Date of Assessment Author No 05/27/2019 10:00 AM Edvin Mancuso RN * Does person have difficulty doing errands alone? Answer Date of Assessment Author No 05/27/2019 10:00 AM Edvin Mancuso RN documented as of this encounter Mental Status * Does person have difficulty concentrating/remembering/making decisions? Answer Entry Date Author No 05/27/2019 10:00 AM Edvin Mancuso RN documented in this encounter Miscellaneous Notes * Telephone Encounter - Yong Sierra RN - 05/29/2019 1:06 PM CST Called mom to check on giorgi Lam message to call me with updated bgs, status. E RIGGER documented in this encounter Plan of Treatment Not on file documented as of this encounter Visit Diagnoses Not on filedocumented in this encounter Care Teams Seam Feller Relationship Specialty Start Date End Date Yohana Palomino MD [address] [address] PCP - General 09/26/09 07/21/24 documented as of this encounter
--- OUTSIDE RECORDS SUMMARY | 2025-03-31 09:21 | XMS_ITS | Encounter Summary ---
Author Organization [facility] Address [address] [place] [address] Care Team Providers Care Compensation Coordinator Name Role Phone Yohana Palomino MD Primary Care Provider [phone] Encounter Details Date Type Department Care Team (Late st Contact Info) Description 04/20/2019 Telephone [facility] Pediatrics - Diabetes Mgmt [address] [place] [id number] Kaitlyn Vieira, DO [address] [place] [id number] Social History Tobacco Use Types Packs/Day Years Used Date Smoking Tobacco: Every Day Smokeless Tobacco: Never Alcohol Use Standard Drinks/Week Comments Yes 0 (1 standard drink = 0.6 oz pur e alcohol) Sex and Gender Information Value Date Recorded Sex Assigned at Not on file Legal Sex Male 5:43 AM SOCIAL MEDIA INTERN Gender Identity Not on file Sexual Orientation Not on file documented as of this encounter Functional Status * Is person deaf or have serious hearing difficulty? Answer Date of Assessment Author No 04/20/2019 2:30 AM SOCIAL MEDIA INTERN Gloria Qiu RN * Is person blind or have serious difficulty seeing? Answer Date of Assessment Author No 04/20/2019 2:30 AM Gloria Garrido RN * Does person have serious difficulty walking/climbing stairs? Answer Date of Assessment Author No 04/20/2019 2:30 AM Gloria Garrido RN * Does person have difficulty dressing/bathing? Answer Date of Assessment Author No 04/20/2019 2:30 AM Gloria Garrido RN * Does person have difficulty doing errands alone? Answer Date of Assessment Author No 04/20/2019 2:30 AM Gloria Garrido RN documented as of this encounter Mental Status * Does person have difficulty concentrating/remembering/making decisions? Answer Entry Date Author Yes 04/20/2019 2:30 AM Gloria Garrido RN documented in this encounter Miscellaneous Notes * Telephone Encounter - Steph Melendrez RN - 04/29/2019 9:40 AM SOCIAL MEDIA INTERN Called and spoke with Chaz, current caregiver. He was unable to provide blood sugars. Stated that Denton was doing well. Has had bg >500 twice after he went out with friends. Stated that he otherwise was running closer to 200. Asked him to call in blood sugars today or tomorrow. Chaz stated that he is making sure blood sugars are checked and insulin is being administered. He felt doses did no t need to be adjusted but we reviewed that bg target is 80-150. He verbalized understanding. Reviewed contact information and how to call. AL MEDIA INTERN * Telephone Encounter - Kaitlyn Vieira DO - 04/22/2019 10:30 AM SOCIAL MEDIA INTERN Psychiatrist Alexandria Thomas returned my call personally. She states she has been involved in Denton's care previously and knows his family well, though she has not seen him in one year. She is comfortable with giving prescription for the low dose abilify and remeron and having enough to get toappointment. Also states that would like mom to call and change appointment to 04/30. I called mom and asked that she do that. AL MEDIA INTERN * Telephone Encounter - Kaitlyn Vieira DO - 04/22/2019 10:02 AM SOCIAL MEDIA INTERN I called mom and she gave verbal consent by phone to speak with psychiatrist at [facility]. Psychiatrist is MARIANNE Thomas, and appointment is 04/29/19 at 4 PM. I attempted to call Alexandria Thomas's office. No answer. LMOM to call back and left numbers. AL MEDIA INTERN * Telephone Encounter - Kaitlyn Vieira DO - 04/21/2019 10:44 AM SOCIAL MEDIA INTERN I called Denton's mom as requested with update on status. Discussed that he will be here for remainder of today and will possibly go home tomorrow. Discussed psychology seeing Denton. Mom expressed concern that he is intentionally trying to get admitted to the hospital repeatedly. AL MEDIA INTERN * Telephone Encounter - Maddy Gross RN - 04/20/2019 4:54 PM CST I reached out to Chaz [phone] (Genaro's cousin) who he has been living with for the past 3 weeks. He states he has spoken with a diabetes nurse in the past about some of Genaro's care. I explained that we would like to meet with him for some basic education about Genaro's care. He said that was fine, but that he shares a car with this and would have to be after 4:00 pm. She works Saturday-Saturday until 4:00pm each day. I scheduled him for 4:30 pm tomorrow with us (he has a [address]) and explained the importance of the education. Chaz verbalized understanding. I reviewed with him our phone numbers, office and on-call numbers and explained when to select option 1 vs 4. I reviewed with him signs and symptoms of DKA and elevated blood sugars. I told him we want him to contact us if Denton vomits, even once to call. I told him when we meet we would show him how to check for ketones, explain his target blood sugar, show him how to give an insulin injection and glucagon. Chaz confirmed that he would be here at 4:30 pm tomorrow. I told him we would be in contact if anything changes. AL MEDIA INTERN documented in this encounter Plan of Treatment Not on file documented as of this encounter Visit Diagnoses Not on filedocumented in this encounter Care Teams Compensation Coordinator Relationship Specialty Start Date End Date Yohana Palomino MD [address] [facility] [address] [place] [address] PCP - General 09/26/09 07/21/24 documented as of this encounter
--- OUTSIDE RECORDS SUMMARY | 2025-03-31 09:21 | XMS_ITS | Clinical Summary ---
Author Organization [facility] Address [address] 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 This disclosure is being madepursuant to the Care Everywhere program and may not contain all information available regarding this patient. Last updated 17.[facility] Allergies Active Allergy Reactions Criticality Noted Date Comments Adhesive Sensitivity Rash Medium 01/21/2018 TAPE Peanut-Derived Rash Medium 01/24/2018 Extract Of Poison Tanvi Rash Low 05/10/2015 Patient stated eyes get really puffy. Medications * This document contains information received from the source organization and may not represent a complete record from that organization. * Be aware that medications may not be up to date on this document. Alwaysverify current medications with the patient. Insulin Syringe-Needle U-100 (BD INSULIN SYRINGE ULTRAFINE) 31G X 15/64 0.5 ML syringe Use to administer Lantus as directed. 100 Syringe 11 07/19/19 17 Active BD INSULIN SYRINGE ULTRAFINE 31G X 5/16 0.5 ML syringe Use with lantus injection nightly 100 Each 11 09/14/19 18 Active ACCU-CHEK FASTCLIX LANCETS Use to check blood sugar 5-9 times a day or as directed. 204 Each 09/21/19 18 Active ONETOUCH DELICA LANCETS 33G MISCIndications:T ype 1 diabetes mellitus without complication (HCC) Use 1 Each as directed To check blood usgar 5-9 times daily 200 Each 5 03/26/20 19 Active Blood Glucose Monitoring Suppl (ONETOUCH VERIO) w/Device KIT Use 1 kit as directed 1 kit 1 05/15/19 Active blood glucose (ONETOUCH VERIO) test strip TEST 5-9 TIMES DAILY 200 strip 1 05/28/19 Active glucagon (GLUCAGEN) injection Inject 1 mg into muscle as needed (hypoglycemia) 1 Each 1 06/08/19 20 Active insulin glargine (LANTUS SOLOSTAR) pen 35 units nightly, prime needle with 2 units before every injection. 30 mL 2 07/29/19 Active Insulin Lispro (HUMALOG KWIKPEN) 100 UNIT/ML 1 unit per 5 grams of carbohydrate with meals and snacks. Max daily dose 70 units 15 mL 2 07/29/19 20 Active acetone,urine, (KETOSTIX) strip Use as needed (use when blood sugar is greater than 250 or when ill. ) 100 strip 5 07/29/19 Active Alcohol Swabs 70 % Use to clean site for insulin injections 200 Each 07/29/19 20 Active Insulin Pen Needle (BD PEN NEEDLE EDNA U/F) 32G X 4 MM MISCIndications:D iabetes mellitus type 1, controlled, without complications (HCC) Use 1 Each as directed Use for injections 4-6 times daily. 200 Each 5 08/11/19 20 Active Active Problems Problem Noted Date Diagnosed Date High risk social situation 06/25/2019 Assessment & Plan (06/26/2019 4:02 PM CDT): Assessment: Patient has been admitted numerous times for DKA, most recently from 06/17-06/20. Reports housing instability, states mother refused to allow him in home after prior hospitalization. Patient also states that he has had intermittent self-harm and suicidal ideation as well as auditory hallucinations (not present this admission). DALTON consulted and determined patient is not eligable for inpatient psych evaluation. Plan: - SS consult for med non-compliance - Discharge home to mother when available. Assessment & Plan (06/25/2019 1:46 PM CDT): Assessment: Patient has been admitted numerous times for DKA, most recently from 06/17-06/20. Reports housing instability, states mother refused to allow him in home after prior hospitalization. Plan: - SS consult for med non-compliance - arranging for safe discharge at this time when medically ready Diabetic ketoacidosis withou t coma associated with type 1 diabetes mellitus 06/24/2019 Assessment & Plan (07/29/2019 11:45 AM CDT): Assessment: Denton is a 18 year old male who presents with vomiting. His past medical history is significant for poorly-controlled type 1 DM, ODD, ADHD, BPD. Per ED documentation he ran out of insulin needles however upon admission he cannot recall whether or not he has been adherent to his insulin regimen. Labs and hx consistent with DKA. Plan: FEN/GI/ENDO: - NPO - Transition to sub-Q insulin with breakfast and DC insulin drip as DKA appears resolved. - glucose check q1h - BMP q4 - Urine ketones qvoid - Zofran 4 mg q4h PRN N/V - SW consult - Diabetes education consult - Nutrition consult - HbA1c 16.8 ID: - afebrile, low suspicion for infection at this time Cardio/Resp: - Vitals q2 - CR monitors - continuous pulse ox Neuro/Pain: - neuro checks q2 Access: Right AC PIV Assessment & Plan (07/28/2019 1:23 PM CDT): Assessment: Denton is a 18 year old male who presents with vomiting. His past medical history is significant for poorly-controlled type 1 DM, ODD, ADHD, BPD. Per ED documentation he ran out of insulin needles however upon admission he cannot recall whether or not he has been adherent to his insulin regimen. Labs and hx consistent with DKA. Plan: - admit to Endocrine, Dr. Hua FEN/GI/ENDO: - NPO - IV per protocol, change rates as indicated by q1h glucose checks - TFG: ~200 cc/hr - D5 1/2 NS + 20 mEq/L Kacetate and 20 mEq/L KPhos at 1 ml/hr - 1/2 NS + 20 mEq/L Kacetate and 20 mEq/L KPhos at 197 ml/hr - insulin gtt at 0.1 U/kg/hr - glucose check q1h - BMP q4 - Urine ketones qvoid - Zofran 4 mg q4h PRN N/V - SW consult - Diabetes education consult - Nutrition consult - HbA1c 16.8 ID: - afebrile, low suspicion for infection at this time Cardio/Resp: - Vitals q2 - CR monitors - continuous pulse ox Neuro/Pain: - neuro checks q2 Access: Right AC PIV Assessment & Plan (07/07/2019 1:38 PM CDT): Assessment: Denton Ring is a 18 year old male with hx of T1DM with multiple hospitalizations for DKA (this one being 7th in 2019), most recently discharged on 06/25, brought in to [facility] ER by EMS after being found to be hyperglycemic. Blood work at time of admission consistent with DKA. Given lack of secondary symptoms and Denton's social situation and history of compliance issues, would suspect that Denton's exacerbation is likely due to inconsistent insulin administration despite patient verbalizing that he is taking his medications. DKA now resolved and patient ready for transition to subQ insulin. Plan: FEN/GI/ENDO: - Diet: Carb counting - Discontinue Insulin drip once patient has food and subQ insulin available - Insulin regimen: Lantus 35 units qD, Carb ratio 1 unit Humalog per 5 grams carbs, Correction Humalog 2 units per every 50 > 150 - Glucose checks 5x daily (before meals, HS, and 0200) - Hypoglycemia precautions - Urine ketones qvoid until negative - SW consult ID: Afebrile. No acute concerns - Monitor clinically Cardio/Resp: - JOE - Vitals with glucose checks Access: PIV Disposition - consider discharging later today if ride home available and patient tolerating PO intake without difficulty Assessment & Plan (07/07/2019 1:10 AM CDT): Assessment: Denton Ring is a 18 year old male with hx of T1DM with multiple hospitalizations for DKA (this one being 7th in 2019), most recently discharged on 06/25, brought in to [facility] ER by EMS after being found to be hyperglycemic. Blood work at time of admission is consistent with DKA. Given lack of secondary symptoms and Denton's homeless status, would suspect that Denton's exacerbation is likely due to inconsistent insulin administration despite patient verbalizing that he is taking his medications. Denton is clinically stable at time of admission. Plan: - Admit to TCU, under service of Dr. Hua FEN/GI/ENDO: - Diet: NPO - IV per protocol - TF ml/hr (2.5 L/m2) - D10-1/2 NS + 20 Kacetate and 20 KPhos at 0 ml/hr - 1/2 NS + 20 Kacetate and 20 KPhos at 200 ml/hr - Insulin gtt at 0.1 U/kg/hr - Glucose check q1h - BMP q4 - Urine ketones qvoid - SW consult ID: Afebrile. No acute concerns - Monitor clinically Cardio/Resp: - Vitals q2 - CR monitors - continuous pulse ox Neuro/Pain: - Neuro checks q2 - consider Neurology consult in the AM. Access: PIV Assessment & Plan (06/26/2019 4:01 PM CDT): Assessment: Denton is a type 1 diabetic who presents from OSH for evaluation of elevated blood glucose. Labs both as OSH and at consistent with DKA. S/p resuscitation with 2 bag method and insulin drip; Now transitioned to routine insulin dosing and tolerating PO. Elevated morning glucose to 353. One episode of hypoglycemia which resolved with PO juice. Plan: FEN - carb counting diet - consult nutrition - monitor I/Os Endo - Insulin dosing regimen: - lantus 35 units long acting. Dose today at ~4 AM. Tomorrow at ~1 AM. Continue to decrease by 3 hours until dosing at 7 PM. - glucose checks 5 times per day CV - vital signs 5 times per day with glucose checks - SCDs ID - no acute concerns Neuro/pain - tylenol, naproxen prn Access: PIV Assessment & Plan (06/25/2019 1:44 PM CDT): Assessment: Denton is a type 1 diabetic who presents from OSH for evaluation of elevated blood glucose. Labs both as OSH and at CG consistent with DKA. S/p resuscitation with 2 bag method and insulin drip; Now transitioned to routine insulin dosing and tolerating PO. Plan: FEN - carb counting diet - consult nutrition - monitor I/Os Endo - Insulin dosing regimen: - lantus 32 units long acting. First dose today at ~7AM. Next dose tomorrow at ~4AM - glucose checks 5 times per day - urine ketones qVoid until negative CV - vital signs 5 times per day with glucose checks - SCDs ID - no acute concerns Neuro/pain - tylenol, naproxen prn Access: PIV Assessment & Plan (06/24/2019 7:50 PM CDT): Assessment: Denton is a type 1 diabetic who presents from OSH for evaluation of elevated blood glucose. Labs both as OSH and at CG consistent with DKA. Clinically improving after starting insulin drip. Of note, patient has had multiple admissions for similar concerns. Plan: - Admit to endocrinology service, Dr. Hua - Insulin drip at 0.1 units/kg/hr - 1/2NS and D10% 1/2 NS to maintain blood glucose levels with total fluid volume of 200 ml/hr - BMP q 4 hours - Glucose checks q hour - Wean insulin and fluids per DKA protocol - Q 2 hour neuro checks - Urine ketones q void until negative Type 1 diabetes mellitus with ketoacidosis witho ut coma 04/19/2019 Assessment & Plan (08/12/2019 10:47 AM CDT): Assessment: Denton is a 19 year old male with hx of type 1 diabetes, high risk social situation and multiple admissions for DKA (total of 14, this is this 9th admission since 2019). He presented with elevated blood sugar and severe metabolic acidosis. Labs were consistent with DKA and he was started on fluids and Insulin per protocol at ED. Etiologies include medication non compliance vs infection vs viral illness. He required admission for management of diabetic ketoacidosis. Plan: FEN/GI: - Regular diet - Carb counting Endo: - Lantus 35 units QHS, - Humalog carb ratio of 1 unit for every 5 grams CHO - Humalog correction of 2 units for every 50 >150. Labs: - Glucose check with meals - Urine ketones qvoid - SW consulted Consults: - Diabetes education consulted - Nutrition consulted ID: - Afebrile CV / RESP: - JOE - Vitals q4h - CR monitors - Continuous pulse ox Neuro/Pain: - Neuro checks q8h Access: PIV Stable for discharge home on 08/11. Assessment & Plan (2019 12:01 PM CDT): Assessment: Denton is a 18 year old male with hx of type 1 diabetes, high risk social situation and multiple admissions for DKA (total of 14, this is this 9th admission since 2019). He presented with elevated blood sugar and severe metabolic acidosis. Labs were consistent with DKA and he was started on fluids and Insulin per protocol at ED. Etiologies include medication non compliance vs infection vs viral illness. He required admission for management of diabetic ketoacidosis. Plan: - Admit to Endocrine, Dr. Kirkland. Fluids: - NPO - IV per protocol - TFml/hr : 2.5 L/M2 of BSA - D10 1/2 NS + 20 KCl and 20 KPhos at 1 ml/hr - 1/2 NS + 20 KCl and 20 KPhos at 188 ml/hr currently. - Insulin drip at 0.1 unit/kg/hr. Labs: - Glucose check q1h - BMP q4h - Urine ketones qvoid - SW consult Consults: - Diabetes education consult - Nutrition consult ID: - Afebrile CV / RESP: - JOE - Vitals q2h - CR monitors - Continuous pulse ox Neuro/Pain: - Neuro checks q2h Access: PIV Assessment & Plan (04/21/2019 4:38 PM VOLUNTEER MANAGER): Type 1 diabetes mellitus with ketoacidosis without coma Assessment: Denton is a known, poorly controlled, patient with T1DM who presented with vomiting and elevated blood glucose, found to be in DKA. In ED he was lethargic but alert and oriented. He was started on insulin drip and fluids with 2-bag system. Admitted to PICU, DKA corrected overnight and he was transitioned to home insulin regimen. Of note, he has been frequently admitted for DKA recently, is very poorly controlled (Hgb A1C 18); also has significant psychiatric history that is currently not managed well (no counseling or medications). Plan: FEN/GI/Endo - Diet: carb counting - Lantus 32U qhs - received at 11AM today, will push back q3h each day until bedtime - Humalog 1U:5g CHO, 2U:50>150 - Glucose checks 5x daily - Zofran q8hr prn IV for nausea and vomiting - Urine ketones q void until negative Resp: - Stable on room air - CR and pulse ox monitoring ID: - Amoxicillin 500mg BID x7 days for otitis media/pharyngitis - continue to monitor clinically - chloraseptic spray PRN for sore throat Neuro: - PRN tylenol - vitals with glucose checks Psych: - Consult social sciences chair, psychology, DALTON - DALTON called this morning; has 24 hours to evaluate -- will not discharge home until at least psych follow-up appointment is established Assessment & Plan (04/20/2019 6:30 PM VOLUNTEER MANAGER): Type 1 diabetes mellitus with ketoacidosis without coma Assessment: Denton is a known, poorly controlled, patient with T1DM who presented with vomiting and elevated blood glucose, found to be in DKA. In ED he was lethargic but alert and oriented. He was started on insulin drip and fluids with 2-bag system. Admitted to PICU, DKA corrected overnight and he was transitioned to home insulin regimen. Of note, he has been frequently admitted for DKA recently, is very poorly controlled (Hgb A1C 18) and also has a significant psychiatric history that is currently not managed well (no counseling or medications). Plan: - Transfer to Endocrinology, Dr. Vieira FEN/GI/Endo - Diet: carb counting - Lantus 32U qhs (received at 8am this morning, will need to push back over the next few days) - Humalog 1U:5g CHO, 2U:50>150 - Glucose checks 5x daily - Zofran q8hr prn IV for nausea and vomiting - Urine ketones q void until negative Resp: - Stable on room air - CR and pulse ox monitoring ID: - Amoxicillin 500mg BID x7 days for otitis media/pharyngitis - continue to monitor clinically - chloraseptic spray PRN for sore throat Neuro: - PRN tylenol - vitals with glucose checks Psych: - Consult social sciences chair, psychology, central intake Assessment & Plan (04/20/2019 10:45 AM VOLUNTEER MANAGER): Assessment: Denton is a known, poorly controlled, Type 1 diabetic who presented with vomiting and elevated blood glucose, found to be in DKA. In ED he was lethargic but alert and oriented. He was started on insulin drip and fluids with 2-bag system. Admitted to PICU, DKA corrected overnight and he was transitioned to home insulin regimen. Of note, he has been frequently admitted for DKA recently, is very poorly controlled (Hgb A1C 18) and also has a significant psychiatric history that is currently not managed well (no counseling or medications). Plan: - Transfer to Endocrinology, Dr. Dariel ELI/GI/Endo - Diet: carb counting - Lantus 32U qhs (received at 8am this morning, will need to push back over the next few days) - Humalog 1U:5g CHO, 2U:50>150 - Glucose checks 5x daily - Zofran q8hr prn IV for nausea and vomiting - Urine ketones q void until negative Resp: - Stable on room air - CR and pulse ox monitoring ID: - Amoxicillin 500mg BID x7 days for otitis media/pharyngitis Neuro: - PRN tylenol - vitals q4h Psych: - Consult social sciences chair Access: PIV Assessment & Plan (04/19/2019 11:56 AM VOLUNTEER MANAGER): Assessment: Denton is a known, poorly controlled, Type 1 diabetic who presented with vomiting and elevated blood glucose, found to be in DKA. In ED he was lethargic but alert and oriented. He was started on insulin drip and fluids with 2-bag system. Of note, he has been frequently admitted for DKA recently, is very poorly controlled (Hgb A1C 18) and also has a significant psychiatric history that is currently not managed well (no counseling or medications). Requires ICU admission due to diabetic ketoacidosis with altered mental status. Plan: - Admit to PICU, Dr. Sohan ELI/AMBER/Endo - NPO - Insulin drip at 0.1 units/kg/hr - 1/2NS and D10% 1/2 NS to maintain blood glucose levels with total fluid volume of 200 ml/hr (2.5 L/m2) - Wean insulin and fluids per DKA protocol - BMP q 4 hours - Repeat CBG - Glucose checks q hour - Zofran q8hr prn IV for nausea and vomiting - Urine ketones q void until negative Resp: - Stable on room air - CR and pulse ox monitoring Neuro - Q 2 hour neuro checks - Toradol 30mg IV x1 - vitals q2hr Access: PIV Complex partial seizure 11/12/2011 Photophobia 05/09/2011 Complex partial seizure 05/09/2011 Migraine 05/09/2011 ADHD (attention deficit hyperactivity disorder) 05/09/2011 Assessment & Plan (10/08/2015 9:14 AM CDT): Assessment: 15 y.o. Male with history of ADHD. Plan: Continue home regimen of methylphenidate CR capsules 60 mg daily Assessment & Plan (10/07/2015 10:17 PM CDT): Assessment: 15 y.o. Male with history of ADHD. Plan: Continue home regimen of methylphenidate CR capsules 60 mg daily Altered mental status 12/23/2009 Overview (01/05/2018): During Genaro's hospital stay patient symptoms had resolved spontaneously in ED per records. He received intravenous fluids and received subcutaneous insulin for his known diabetes. Genaro was further assessed for potential causes of his episode of altered mental status and emesis. BMP, NH3, CBC, urinalysis and urine [id number] screen were unremarkable, and blood negative for Tylenol, aspirin, ethanol. CT of head normal, except for 2 cm subcu cyst. Neurology had been consulted. EEG performed was abnormal and had pattern concerning for tendency towards partial onset seizures. Per neurology's recommendations, he was discharge home with Keppra 1.6mL twice daily for 5 days, then to increase dose to 3.2mL twice daily. Parents are to call [phone] for follow up appointment for Genaro to be seen in 6 weeks at [facility]'s neurology clinic or sooner if seizures. He was continued on subcutaneous insulin regimen for control of his diabetes type I of Lantus 12 units at bedtime and carbohydrate counting diet with 1 unit of HumaLog per 15 grams of carbohydrates. He was to follow with Endocrinology on the 12/26 to report blood glucose levels or sooner if AMS or emesis returned. IMO UPDT 01/06/2018 Uncontrolled type 1 diabetes mellitus without co mplication 09/21/2009 Overview (07/07/2018): Diagnosed 08/12/2008 Assessment & Plan (05/27/2019 11:10 AM VOLUNTEER MANAGER): Assessment: Denton Ring is a 18 year old male with hx of DM1 with multiple hospitalizations for DKA (3 in 2019), most recently 1 week ago brought in to by EMS after being found to be hyperglycemic. Blood work at time of admission was concerning for DKA. Given lack of secondary symptoms and Denton's homeless status, would suspect that Denton's exacerbation is likely due to inconsistent insulin administration despite patient verbalizing that he is taking his medications. His hyperglycemia resolved quickly following IV insulin and he was switched to SubQ insulin. Plan FEN/GI/ENDO: - Diet: regular - Insulin: - Lantus 32u qhs - Humalog 1u/5g CHO, correction add 2u per 50mg/dL over 150mg/dL - Glucose check 5x bobbi - Urine ketones qvoid ID: Afebrile. No acute concerns - Monitor clinically Cardio/Resp: - Vitals with sugar checks - CR monitors - continuous pulse ox Neuro/Pain/Psych: - SW consult Access: PIV Dispo: - transfer to Floor, Endocrinology, Dr. Hua Assessment & Plan (02/23/2019 2:54 PM VOLUNTEER MANAGER): Assessment: Denton is a 18 year old male with a PMH of DM1 who was admitted 02/22 for DKA. He was transitioned from insulin drip back to subcutaneous injections overnight. Plan: FEN/GI/ENDO: - carb counting diet - Lantus 29 units QHS - Humalog 1 unit:5 g carbs with meals and glucose correction with 2 units for every 50>150 - glucose check 5x/day - Urine ketones qvoid - SW consult - Diabetes education consult - Nutrition consult ID: - afebrile - Strep swab negative, culture pending Cardio/Resp: - Vitals q2 - CR monitors - continuous pulse ox Neuro/Pain/Psych: - Tylenol 500 mg q4 PRN for pain - neuro checks q2 - Psychiatry consulted, recommending Abilify 2 mg PO QHS for mood stabilization and Remeron 7.5 mg PO QHS for insomnia and dysphoria. - Psychology consult Access: PIV Assessment & Plan (02/23/2019 1:35 AM VOLUNTEER MANAGER): Assessment: Denton is a 18 year old male who presents with nausea, vomiting, chest pain, and dizziness. Labs and hx consistent with DKA. Glucose at OSH >500 and 292 on arrival; CBG- pH 7.21; CMP: CO2- 14, AG- 20. Pt also has sore throat and was swabbed for strep. Plan: - admit to Endocrine, Dr. Vieira FEN/GI/ENDO: - NPO - IV per protocol - TF mL/hr - D10 1/2 NS + 20 Kacetate and 20 KPhos - 1/2 NS + 20 Kacetate and 20 KPhos - insulin gtt at 0.1 U/kg/hr - glucose check q1h - BMP q4 - Urine ketones qvoid - SW consult - Diabetes education consult - Nutrition consult - HbA1c in process ID: - afebrile - Strep swab negative, F/U on culture Cardio/Resp: - Vitals q2 - CR monitors - continuous pulse ox Neuro/Pain: - Tylenol 500 mg q4 PRN for pain - neuro checks q2 Access: PIV Assessment & Plan (05/02/2018 2:59 PM VOLUNTEER MANAGER): 1) must begin taking humalog before meals 2) keep up all of your good habits with taking insulin and checking blood sugars 3) return in [address] Hwang Assessment & Plan (07/11/2016 2:07 PM CDT): 1) increase dinner humalog to 1 unit per 4 grams carb to be given before Denton starts to eat 2) check blood sugar in morning, lunch time, dinner and bedtime daily 3) call in blood sugars in one week 4) return in September Assessment & Plan (04/13/2016 8:20 AM VOLUNTEER MANAGER): 1) must keep logbook daily 2) must check BG 4 times daily 3) call in blood sugars in one week 4) return in 3 months Assessment & Plan (12/06/2015 1:58 PM CDT): 1) increase lantus to 33 units nightly 2) must check blood sugar at least 4 times per day 3) mother to review blood sugar meter at least every 2 days 4) call if blood sugars are not in range consistently 5) return in [address] Fan Assessment & Plan (08/24/2015 9:15 AM CDT): 1) Increase Humalog to 1 unit per 5 grams carb 2) increase lantus to 30 units 3) adults to give injections when they are with him 4) adults to record blood sugars in logbook a couple of times per week 5) call in blood sugars in one week if he is testing 3-4 times per day 6) return in 3 months for Kai, [address] Kirkland Assessment & Plan (05/10/2015 4:40 PM VOLUNTEER MANAGER): Assessment: Genaro is a 14 year old male with PMH diabetes mellitus type 1 admitted for hyperglycemia and ketoacidosis. He was supposed to be admitted to behavior health at [facility] for violent behavior, but will need to have resolution of his current illness before he can be admitted there. Plan: FEN/GI: - diabetic diet with carb counting Endo: - Lantus 24 units at bedtime - meal time insulin 1 unit for every 8 grams carbs - sliding scale correction insulin - pending UA results, at evening meal will receive addition 3 units for moderate ketones or 4 units for large ketones - UA and BMP on admission are pending ID: - possible recent gastroenteritis, that seems to have resolved - current no nausea or vomiting Psych: - violent behavior, plan is for admission to [place] once acute illness resolves - spoke with Bernarda Edouard, social service, once official plan for discharge in plan will need to contact facility, [facility] may require reevaluation of violent/suicide status prior to transfer and admission Cardio/Resp: stable Renal: stable Neuro: stable Heme/Onc: stable Assessment & Plan (02/05/2013 10:12 AM CDT): 1) parents to increase supervision 2) parents to give injections at breakfast, lunch, dinner and bedtime 3) parents to witness 4 blood sugars checks per day 4) blood sugars to be called in if consistently over 200 5) schedule eye exam [facility] [phone] 6) return in 2 months If improvement is not seen in two months should consider referral to [facility] as the home environment appears to be chaotic with little parental involvement. Resolved Problems Problem Noted Date Diagnosed Date Resolved Date Diabetic ketoacidosis withou t coma associated with type 1 diabetes mellitus 06/19/2019 06/21/2019 Assessment & Plan (06/20/2019 4:03 PM CDT): Assessment: Denton Ring is a 18 year old male with hx of DM1 with multiple admissions for DKA who presented with hyperglycemia with BG >500, in the setting of a respiratory infection. Also with report of a staring seizure-like episode. Normal vitals and exam on presentation. Labs consistent with DKA. He was started on insulin drip and 2-bag fluid system per protocol. Admitted to PICU for further management. Blood glucose levels were monitored and showed improvement. He was determined to be stable for transfer to TCU. Transitioned to home insulin regimen on 06/18 around lunch time. Remained hyperglycemic most notably with AM glucose of 404. He has otherwise improved symptomatically, tolerating PO now. Plan: FEN/GI/ENDO: - Diet: Carb Counting - Insulin Regimen: -Lantus 35 U today (up from 32 units). Will go home with 35 U -CHO ratio: 1 unit per 5 g CHO -Correction: 2 unit per 50 > 150 for pre-meal blood glucose (increase from 1 unit per 50 > 150). Will go home with previous dosing of 1 unit per 50 > 150 - Glucose check 5x/day - Urine ketones qvoid ID: - Afebrile. No acute concerns - Consider restarting amoxicillin for sinus infection Cardio/Resp: - Vitals with glucose checks - CR monitors - continuous pulse ox Neuro/Pain: - Neurology consulted - PRN tylenol Access: PIV Assessment & Plan (06/19/2019 1:32 PM CDT): Assessment: Denton Ring is a 18 year old male with hx of DM1 with multiple admissions for DKA who presented with hyperglycemia with BG >500, in the setting of a respiratory infection. Also with report of a staring seizure-like episode. Normal vitals and exam on presentation. Labs consistent with DKA. He was started on insulin drip and 2-bag fluid system per protocol. Admitted to PICU for further management. Blood glucose levels were monitored and showed improvement. He was determined to be stable for transfer to TCU. Plan: - Transfer to Endocrinology, Dr. Javid ELI/GI/ENDO: Ready to transition - Diet: Carb Counting - D101/2 NS + 20 Kacetate and 20 KPhos at 1 ml/hr - Insulin Regimen: -Lantus 32 U now -CHO ratio: 1 unit per 5 g CHO -Correction: 1 unit per 50 > 150 for pre-meal blood glucose - Glucose check 5x/day - Urine ketones qvoid ID: Afebrile. No acute concerns - Consider restarting amoxicillin for sinus infection Cardio/Resp: - Vitals with glucose checks - CR monitors - continuous pulse ox Neuro/Pain: - Neurology consulted - PRN tylenol Access: PIV Assessment & Plan (06/19/2019 10:04 AM CDT): Assessment: Denton Ring is a 18 year old male with hx of DM1 with multiple admissions for DKA who presented with hyperglycemia with BG >500, in the setting of a respiratory infection. Also with report of a staring seizure-like episode. Normal vitals and exam on presentation. Labs consistent with DKA. He was started on insulin drip and 2-bag fluid system per protocol. Admitted to PICU for further management. Blood glucose levels were monitored and showed improvement. He was determined to be stable for transfer to TCU. Plan: - Transfer to Endocrinology, Dr. Javid ELI/AMBER/ENDO: - Diet: NPO - IV per protocol - TF ml/hr (2.5 L/m2) - D101/2 NS + 20 Kacetate and 20 KPhos at 1 ml/hr - 1/2 NS + 20 Kacetate and 20 KPhos at 200 ml/hr - Insulin gtt at 0.1 U/kg/hr - Glucose check q1h - BMP and blood gas q4 - Urine ketones qvoid ID: Afebrile. No acute concerns - Consider restarting amoxicillin for sinus infection Cardio/Resp: - Vitals q2 - CR monitors - continuous pulse ox Neuro/Pain: - Neuro checks q2 - Neurology consult for possible seizure activity (staring spell) - PRN tylenol Access: PIV Assessment & Plan (06/19/2019 6:07 AM CDT): Assessment: Denton Ring is a 18 year old male with hx of DM1 with multiple admissions for DKA who presented with hyperglycemia with BG >500, in the setting of a respiratory infection. Also with report of a staring seizure-like episode. Normal vitals and exam on presentation. Labs consistent with DKA. He was started on insulin drip and 2-bag fluid system per protocol. Admitted to PICU for further management. Plan: - Admit to PICU, Dr. Castro FEN/GI/ENDO: - Diet: NPO - IV per protocol - TF ml/hr (2.5 L/m2) - D101/2 NS + 20 Kacetate and 20 KPhos at 1 ml/hr - 1/2 NS + 20 Kacetate and 20 KPhos at 200 ml/hr - Insulin gtt at 0.1 U/kg/hr - Glucose check q1h - BMP and blood gas q4 - Urine ketones qvoid ID: Afebrile. No acute concerns - Consider restarting amoxicillin for sinus infection Cardio/Resp: - Vitals q2 - CR monitors - continuous pulse ox Neuro/Pain: - Neuro checks q2 - PRN tylenol Access: PIV Decreased responsiveness 06/18/2019 Assessment & Plan (06/19/2019 1:10 PM CDT): Assessment: 18 year old male w/ PMHx of migraines and complex partial seizures (last in 2011), not currently on antiepileptic medication, who presents with a 15 minute episode of unresponsiveness concerning for seizure. This is likely secondary to hyperglycemia/DKA after not taking his nightly insulin. However, this could also be due to recurrent seizures. Plan: - Recommend routine EEG inpatient, however patient refuses, mother (legal guardian) is aware and accepts his decision - Follow up with an adult neurologist in 3 months - Neurology will sign off for now, please do not hesitate to contact us with any concerns/questions DKA (diabetic ketoacidoses) 01/14/2019 06/10/2019 Overview (01/06/2021): IMO 2020 Assessment & Plan (05/27/2019 7:24 AM VOLUNTEER MANAGER): Assessment: Denton Ring is a 18 year old male with hx of DM1 with multiple hospitalizations for DKA (3 in 2019, this will be 4), most recently 1 week ago brought in to by EMS after being found to be hyperglycemic. Blood work at time of admission is consistent with DKA. Given lack of secondary symptoms and Denton's homeless status, would suspect that Denton's exacerbation is likely due to inconsistent insulin administration despite patient verbalizing that he is taking his medications. Denton is clinically stable at time of admission. Plan: - Admit to Pediatric Endocrinology under service of Dr. Hua FEN/GI/ENDO: - Diet: NPO - IV per protocol - TF ml/hr (2.5 L/m2) - D5-10-1/2 NS + 20 Kacetate and 20 KPhos at 150 ml/hr - 1/2 NS + 20 Kacetate and 20 KPhos at 50 ml/hr - Insulin gtt at 0.1 U/kg/hr - Glucose check q1h - BMP q4 - Urine ketones qvoid - SW consult ID: Afebrile. No acute concerns - Monitor clinically Cardio/Resp: - Vitals q2 - CR monitors - continuous pulse ox Neuro/Pain: - Neuro checks q2 Access: PIV Assessment & Plan (05/21/2019 4:34 PM VOLUNTEER MANAGER): Assessment: Denton is a 18 year old male with type 1 DM with hx of poor compliance with insulin regimen who was found unconscious and brought to ED. Labs and hx consistent with DKA. Started on DKA twp bag fluid and insulin drip per protocol. Requires admission for close monitoring of fluid status, glucoses and bicarb Plan: FEN/GI/ENDO: - Carb counting - IV per protocol - TF ml/hr - D5 1/2 NS + 20 Kacetate and 20 KPhos at 1 ml/hr - 1/2 NS + 20 Kacetate and 20 KPhos at 200 ml/hr - Discontinue insulin gtt at 0.1 U/kg/hr - Start home insulin regimen: -Humalog 1 unit:5 g carbohydrates at meals -Correction dose: 2 units for every 50 over 150 -Lantus 32 units at bedtime - glucose check q1h - BMP q4 - Urine ketones q8h - SW consult - Diabetes education consult - Nutrition consult Cardio/Resp: - Vitals q2 - CR monitors - continuous pulse ox Neuro/Pain: - Tylenol 650 mg q4 PRN for pain - neuro checks q2 Access: PIV x2 Assessment & Plan (05/20/2019 8:41 PM VOLUNTEER MANAGER): Assessment: Denton is a 18 year old male with type 1 DM with hx of poor compliance with insulin regimen who was found unconscious and brought to ED. Labs and hx consistent with DKA. Started on DKA twp bag fluid and insulin drip per protocol. Requires admission for close monitoring of fluid status, glucoses and bicarb. Plan: - admit to Endocrine, Dr. Hwang FEN/GI/ENDO: - NPO - IV per protocol - TF ml/hr - D5 1/2 NS + 20 Kacetate and 20 KPhos at 1 ml/hr - 1/2 NS + 20 Kacetate and 20 KPhos at 200 ml/hr - insulin gtt at 0.1 U/kg/hr - glucose check q1h - BMP q4 - Urine ketones qvoid - SW consult - Diabetes education consult - Nutrition consult ID: - afebrile - follow urine culture Cardio/Resp: - Vitals q2 - CR monitors - continuous pulse ox Neuro/Pain: - Tylenol 650 mg q4 PRN for pain - neuro checks q2 Access: PIV x2 Assessment & Plan (04/10/2019 4:57 PM VOLUNTEER MANAGER): Assessment: Denton is a known, poorly controlled, Type 1 diabetic who presents in DKA. He has been frequently admitted (monthly for the past 4 months) for DKA, is very poorly controlled (Hgb A1C 18.1) and also has a significant psychiatric history that is currently not managed well (no counseling or medications- history of past hospitalizations). Requires admission due to diabetic ketoacidosis. Plan: Was able to transition pt to subcutaneous insulin off insulin drip and two bag fluid system once AG closed and bicarb normalized. - Lantus 32 units nightly (will move closer to normal timing of ; was given 04/10/19 at lunch during transition of insulin drip - Humalog 1unit: 5 g carbohydrate at meals and SSI: 2 unit if glucose for every 50 over 150 in blood glucose - Carb counting diet - Hgb A1C- 18.1 - Bedside glucose 5x daily prior meal, qHS, and 0200 - If >365 then obtain STAT lab glucose - If <70, immediately give 4 oz juice/soda or 8 oz milk. Recheck glucose 15 minutes later and if still decreased then repeat. - If < 70 and patient is unresponsive or seizing. Give glucagon 1 mg IM PRN. - VS 5x/day before meals, qHS and 0200 with glucose checks per diabetes orders - Daily weights - Psychiatry was consulted due to psychiatric history; social sciences chair following due to social history Assessment & Plan (04/10/2019 2:23 AM VOLUNTEER MANAGER): Assessment: Denton is a known, poorly controlled, Type 1 diabetic who presents in DKA. He still has labored breathing and significant nausea but less vomiting since starting the insulin drip and he is A&Ox3. He has been frequently admitted (monthly for the past 4 months) for DKA, is very poorly controlled (Hgb A1C 18) and also has a significant psychiatric history that is currently not managed well (no counseling or medications). Requires admission due to diabetic ketoacidosis. Plan: - Admit to endocrinology service, Dr. Kirkland - Insulin drip at 0.1 units/kg/hr - 1/2NS and D10% 1/2 NS to maintain blood glucose levels with total fluid volume of 188 ml/hr (2.5 L/m2) - BMP q 4 hours - Glucose checks q hour - Wean insulin and fluids per DKA protocol - NPO. Patient very adamant about wanting to drink something, discussed can have mouth swabs only for now and he agreed. - Zofran q8hr prn IV for nausea and vomiting - SCDs per patient request and due to age - Q 2 hour neuro checks - Urine ketones q void until negative - vitals q2hr - CR and pulse ox monitoring - psychiatry consult in the AM Assessment & Plan (03/27/2019 2:10 PM VOLUNTEER MANAGER): Denton is a 18 year old male who presents with nausea, vomiting, and abdominal pain. Labs and hx consistent with DKA. Glucose at OSH 490 and 256 on arrival; VBG- pH 7.13; BMP: CO2- 8, AG- 25, K 4.7. On insulin drip and 2 bag system. Combative requiring PRN ativan and altered mental status requiring mannitol due to concern for cerebral edema. Transferred to PICU on 03/26 morning and transferred back out of PICU in the evening on 03/26. Transitioned off of 2 bag system and insulin drip and started on insulin regimen. Plan: Discharge home on current insulin regimen FEN/GI/ENDO: - lantus 32U at 7pm daily - humalog 1 unit for every 5g CHO. Sliding scale 2 U for every 50 above 150 - glucose check 5x/day - Urine ketones qvoid - SW consult - Diabetes education consult - Nutrition consult Cardio/Resp: -JOE Neuro/Pain: - Consider Tylenol 500 mg q4 PRN for pain Assessment & Plan (03/26/2019 8:10 PM VOLUNTEER MANAGER): Assessment: Denton is a 18 year old male who presents with nausea, vomiting, and abdominal pain. Labs and hx consistent with DKA. Glucose at OSH 490 and 256 on arrival; VBG- pH 7.13; BMP: CO2- 8, AG- 25, K 4.7. He was admitted on insulin drip and 2 bag system. Combative requiring PRN ativan and altered mental status requiring mannitol due to concern for cerebral edema. he was transfer to PICU because of his altered mental status. In the PICU, his blood sugars downtrended, he corrected out of DKA was transitioned off fluids and drip onto home insulin regimen and transferred back to general care. Of note, marijuana was found in his pocket and a UDS was obtained. Plan: - Transfer to Endocrinology, Dr. Vieira - Carb counting diet - glucose checks 5 times daily - Diabetes education consult - Nutrition consult - Lantus 32 units - Carb ratio will be 1U for 5 grams of carbs, correction is 2U for 50 over 150. - Follow urine tox screen - Strict I/Os - Vitals q8h Access: PIV Assessment & Plan (03/26/2019 4:11 PM VOLUNTEER MANAGER): Assessment: Denton is a 18 year old male who presents with nausea, vomiting, and abdominal pain. Labs and hx consistent with DKA. Glucose at OSH 490 and 256 on arrival; VBG- pH 7.13; BMP: CO2- 8, AG- 25, K 4.7. On insulin drip and 2 bag system. Combative requiring PRN ativan and altered mental status requiring mannitol due to concern for cerebral edema. he requires transfer to PICU because of his altered mental status. In the PICU, his blood sugars downtrended, he is back to baseline and is ready to be transferred back. Plan: -transfer to TCU FEN/GI/ENDO: - IVF per protocol - TF mL/hr - D10 1/2 NS + 20 Kacetate and 20 KPhos - 1/2 NS + 20 Kacetate and 20 KPhos - insulin gtt at 0.1 U/kg/hr - glucose check q1h - BMP q4 - Urine ketones qvoid - SW consult - Diabetes education consult - Nutrition consult - Lantus 32 units - Carb ratio will be 1U for 5 grams of carbs, correction is 2U for 50 over 150. He can transition now that he is back to his baseline. - Follow urine tox screen Cardio/Resp: - Vitals q1 - CR monitors - continuous pulse ox Neuro/Pain: - neuro checks Access: PIV Assessment & Plan (03/26/2019 1:25 PM VOLUNTEER MANAGER): Assessment: Denton is a 18 year old male who presents with nausea, vomiting, and abdominal pain. Labs and hx consistent with DKA. Glucose at OSH 490 and 256 on arrival; VBG- pH 7.13; BMP: CO2- 8, AG- 25, K 4.7. On insulin drip and 2 bag system. Combative requiring PRN ativan and altered mental status requiring mannitol due to concern for cerebral edema. he requires transfer to PICU because of his altered mental status. Plan: -transfer to PICU FEN/GI/ENDO: - NPO - IVF per protocol - TF mL/hr - D10 1/2 NS + 20 Kacetate and 20 KPhos - 1/2 NS + 20 Kacetate and 20 KPhos - insulin gtt at 0.1 U/kg/hr - glucose check q1h - BMP q4 - Urine ketones qvoid - SW consult - Diabetes education consult - Nutrition consult Cardio/Resp: - Vitals q1 - CR monitors - continuous pulse ox Neuro/Pain: - neuro checks q1h Access: PIV Assessment & Plan (03/26/2019 9:17 AM VOLUNTEER MANAGER): Denton is a 18 year old male who presents with nausea, vomiting, and abdominal pain. Labs and hx consistent with DKA. Glucose at OSH 490 and 256 on arrival; VBG- pH 7.13; BMP: CO2- 8, AG- 25, K 4.7. On insulin drip and 2 bag system. Combative requiring PRN ativan and altered mental status requiring mannitol due to concern for cerebral edema. Plan: -transfer to PICU FEN/GI/ENDO: - NPO - IV per protocol - TF mL/hr - D10 1/2 NS + 20 Kacetate and 20 KPhos - 1/2 NS + 20 Kacetate and 20 KPhos - insulin gtt at 0.1 U/kg/hr - glucose check q1h - BMP q4 - Urine ketones qvoid - SW consult - Diabetes education consult - Nutrition consult - Consider HbA1c Cardio/Resp: - Vitals q2 - CR monitors - continuous pulse ox Neuro/Pain: - Consider Tylenol 500 mg q4 PRN for pain - neuro checks q2 Access: PIV Assessment & Plan (03/26/2019 5:26 AM VOLUNTEER MANAGER): Denton is a 18 year old male who presents with nausea, vomiting, and abdominal pain. Labs and hx consistent with DKA. Glucose at OSH 490 and 256 on arrival; VBG- pH 7.13; BMP: CO2- 8, AG- 25, K 4.7. Plan: - admit to Endocrine, Dr. Vieira FEN/GI/ENDO: - NPO - IV per protocol - TF mL/hr - D10 1/2 NS + 20 Kacetate and 20 KPhos - 1/2 NS + 20 Kacetate and 20 KPhos - insulin gtt at 0.1 U/kg/hr - glucose check q1h - BMP q4 - Urine ketones qvoid - SW consult - Diabetes education consult - Nutrition consult - Consider HbA1c Cardio/Resp: - Vitals q2 - CR monitors - continuous pulse ox Neuro/Pain: - Consider Tylenol 500 mg q4 PRN for pain - neuro checks q2 Access: PIV Assessment & Plan (01/15/2019 12:29 AM CDT): Assessment: Denton is a 18 year old male with DMI who presents with emesis and blood glucose 516. Labs and hx consistent with DKA. HbA1c 18.8. Plan: - admit to Endocrine, Dr. Jaiden ELI/GI/ENDO: - NPO - IV per protocol - TF - D10 1/2 NS + 30 Kacetate and 30 KPhos at 190 ml/hr - 1/2 NS + 30 Kacetate and 30 KPhos at 1 ml/hr - insulin gtt at 0.1 U/kg/hr - glucose check q1h - BMP q4 - Urine ketones qvoid -Pepcid 20mg BID -Zofran 4mg prn ID: -Amoxicillin 500mg every 12 hours for AOM on right Cardio/Resp: - Vitals q2 - CR monitors - continuous pulse ox Neuro/Pain: - neuro checks q2 Diabetic ketoacidosis withou t coma associated with type 1 diabetes mellitus 10/07/2015 10/08/2015 Assessment & Plan (10/08/2015 9:14 AM CDT): Assessment: Denton is a 15 y.o. with known DM type 1, poorly controlled presented to ED with DKA. Required insulin drip and IVF. Increasing hyperkalemia during admission requiring PICU transfer which was resolved. DKA now resolved as of this morning and clinically stable for transfer back to Endocrine service. Plan: - Transfer to EndoDr. Kirkland - Lantus 30 U QHS - Humalog 1 U for 5 carbs with all meals - SSI: 1 U for every 50 above 150 - POC glucose before each meal, QHS and 0200 - Urine ketones qVoid - Carb counting diet - VS 5x/day - Strict I/Os - Diabetes education to review regimen and emphasize adherence - Will speak with SW regarding possible barriers as DM management has been a challenge - Needs follow up with Endocrine MD upon discharge Assessment & Plan (10/08/2015 3:01 AM CDT): Assessment: 15 y.o. male with poorly controlled type 1 DM admitted 10/07/15 in DKA. Continues to have low bicarb. Hyperkalemia mandating PICU admission. Plan: Resp - Stable on RA - Continuous pulse ox CV - EKG done, no evidence of T wave elevation - BPs wnl - Continuous CR monitoring FEN/GI - NPO while in DKA - BMP Q4h; K level Q2h Endo - IVF without potassium. D10 77mEq/L of NaCl, 77mEq/L of sodium acetate; fluids without D10 y-ed in to adjust with glucose checks. Total fluids 155ml/hr, 2.5 L/m2 - Increase insulin drip to 0.1 U/kg/hr - Glucose checks Q1h ID No signs of infection at this time Neuro/Pain - Currently requires no pain or sedative medicaitons - Neuro checks Q2h Misc - Continue home metadate 60mg PO Qday Assessment & Plan (10/07/2015 11:04 PM CDT): Assessment: Denton is a 15 y.o. Male with previously known DM type 1 presented to ED with DKA. Upon admission blood glucose 534, bicarb 6, anion gap 29, 2+ glucose in urine, and 3+ ketones in urine. Blood glucose slowly trending down, however potassium trending upwards. Plan: - Transfer to PICU - Continue insulin @ 0.05 u/kg/hr - IVF management per PICU - BMP per PICU team - Blood sugar monitoring per PICU team Assessment & Plan (10/07/2015 10:14 PM CDT): Assessment: Denton is a 15 y.o. Male with previously known DM type 1 presented to ED with DKA. Upon admission blood glucose 534, bicarb 6, anion gap 29, 2+ glucose in urine, and 3+ ketones in urine. Plan: - IV insulin drip 4.59 mL/hr - IVF 0.45% NaCl with K at 155 mL/hr - IVF D10 0.45% NaCl with K at 1 mL/hr - Resume home regimen of Lantus 30 units at bedtime after completing insulin drip - Resume home regimen of Humalog 1 unit:15 grams CHO and 1 unit per every 50 >150 - BMP q4h - UA q8h Hyperkalemia 10/07/2015 10/08/2015 Assessment & Plan (10/08/2015 9:11 AM CDT): Assessment: Initial potassium slightly elevated at 5.5. Potassium added to fluids as insulin drip could cause intracellular transport of potassium. Despite this, potassium continued to rise, to 6.7, 7.0, and 7.8. Decision made per Endocrinology to manage hyperkalemia in ICU setting. Resolved overnight with insulin infusion and removal of K from fluids. Plan: - Resolved. Most recent K 4.4 this morning Assessment & Plan (10/07/2015 11:05 PM CDT): Assessment: Initial potassium slightly elevated at 5.5. Potassium added to fluids as insulin drip could cause intracellular transport of potassium. Despite this, potassium continued to rise, to 6.7, 7.0, and 7.8. Decision made per Endocrinology to manage hyperkalemia in ICU setting. Plan: - Transfer to PICU, Dr. Mcnally Immunizations Immunization Administration Dates Next Due INFLUENZA VACCINE 02/02/2013,01/23/2010 INFLUENZA VACCINE, QUADR. (F LUZONE; FLULAVAL; FLUARIX; AFLURIA QUADRIVALENT; 6MO+), 0.5 ML (IIV4) 03/27/2019,05/11/2015 MENINGOCOCCAL ACWY MENVEO 01/28/2020 Family History Medical History Relation Name Comments Anesthesia Reaction Brother 1 nausea Bipolar Disorder Father Diabetes Other Unspecified num alyssa on both sides of family Relation Name Status Comments Brother 1 Alive Brother 2 Alive Brother 3 Alive Father Alive Mother Alive Other Social History Tobacco Use Types Packs/Day Years Used Date Smoking Tobacco: Every Day Cigarettes Smokeless Tobacco: Never Alcohol Use Standard Drinks/Week Comments Not Currently 0 (1 standard drink = 0.6 oz pur e alcohol) Sex and Gender Information Value Date Recorded Sex Assigned at Not on file Legal Sex Male 5:43 AM VOLUNTEER MANAGER Gender Identity Not on file Sexual Orientation Not on file Last Filed Vital Signs Vital Sign Reading Time Taken Comments Blood Pressure 114/75 08/12/2019 12:40 PM CDT Pulse 100 08/12/2019 12:40 PM CDT Temperature 36.7 C (98 F) 08/12/2019 12:40 PM CDT Respiratory Rate 16 08/12/2019 12:4 0 PM CDT Oxygen Saturation 96% 08/12/2019 12: 29 AM CDT Inhaled Oxygen Concentration 100% 10/07/2015 11:00 PM CDT with albuterol treatment Weight 62.7 kg (138 lb 3.7 oz) 2019 3:18 AM CDT Height 188 cm (6' 2) 2019 3:18 AM CDT Body Mass Index 17.75 2019 3:18 AM CDT Plan of Treatment Health Maintenance Due Date Last Done Comments DIABETES RETINOPATHY SCREENING 09/07/2013 05/09/2011 HIV SCREENING 2016 HPV VACCINE (1 - Male 3-dose series) 2016 MENINGOCOCCAL (Group B) VACCINE SHARED DECISION-MAKING (1 of 2 - Standard) 2017 HEPATITIS C SCREENING 08/07/2019 DIABETES-FOOT EXAM WITH MONOFILAMENT 08/12/2019 DIABETES-HGB A1C 11/11/2019 2019, , 05/20/2019, Additional history exists DIABETES-SERUM CREATININE 08/10/20202019, 2019, 2019, Additional history exists DTAP/TDAP/TD VACCINES (1 - Tdap) 2020 HEPATITIS B VACCINE (1 of 3 - 19+ 3-dose series) 2020 PNEUMOCOCCAL VACCINE (1 of 2 - PCV) 2020 DEPRESSION SCREENING 04/08/2024 DIABETES - URINE PROTEIN SCREENING 04/08/2024 04/18/2017, 07/05/2015, 09/07/2013, Additional history exists COVID-19 VACCINE (1 - season) 2024 INFLUENZA VACCINE (#1) 2024 9, 05/11/2015, 02/02/2013, Additional history exists ZOSTER VACCINE (1 of 2) 08/12/2051 MENINGOCOCCAL GROUPS A/C/Y/W VACCINE Completed 01/28/2020 HIB VACCINE Aged Out No longer eligi ble based on patient's age to complete this topic Procedures Procedure Name Priority Date/Time Associated Diagnosis Comments HEMOGLOBIN A1C STAT 2019 3:34 AM CDT COMPREHENSIVE METABOLIC PANEL STAT 2019 3:31 AM CDT MICROALB/CREAT RATIO URINE RANDOM PANEL Routine 04/18/2017 2:46 PM VOLUNTEER MANAGER Type 1 diabetes mellitus without complication from Last 3 Months or Most Recently Relevant to Health Maintenance Results * (ABNORMAL) HEMOGLOBIN A1C (2019 3:34 AM CDT) Hemoglobin A1c 16.9(H) 3.4 - 6.1 % 2019 4:10 AM CDT [facility] Estimated Average Glucose 438 mg/dL 2019 4:10 AM CDT [facility] Blood BLOOD SPECIMEN / Unknown Venipuncture / Unknown 2019 3:34 AM CDT 2019 3:43 AM CDT Steph Taveras DO LAB - CHEMISTRY ORDERABLE S Final Result Performing Organization Address City/State/RUST Co de Phone Number [facility] [address] [place] [phone] * (ABNORMAL) COMPREHENSIVE METABOLIC PANEL (2019 3:31 AM CDT) Glucose 605(HH) 70 - 105 mg/dL 2019 4:27 AM CDT [facility] Comment:Repeated and Verifie d. Sodium 130(L) 136 - 145 mmol/L 2019 4:27 AM CDT [facility] Potassium 4.6 3.5 - 5.1 mmol/L 2019 4:27 AM CDT [facility] Chloride 93(L) 98 - 107 mmol/L 2019 4:27 AM [facility] CO2 <5(LL) 20 - 28 mmol/L 2019 4:27 AM [facility] Comment:Repeated and Verifie d. Calcium 10.13 9.08 - 10.48 mg/dL 2019 4:27 AM [facility] Anion Gap 2019 4:27 AM [facility] Comment: Assay measuring below lower limits of linearity, calculated result not valid in this circumstance. BUN 16.8 5.3 - 18.7 mg/dL 2019 4:27 AM [facility] Creatinine 1.00 0.61 - 1.07 mg/dL 2019 4:27 AM [facility] Alkaline Phosphatase 154 100 - 390 U/L 2019 4:27 AM [facility] ALT 18 6 - 46 U/L 2019 4:27 AM [facility] AST 10 3 - 35 U/L 2019 4:27 AM [facility] Protein Total 9.1(H) 6.3 - 8.2 gm/dL 2019 4:27 AM [facility] Albumin 4.8 3.3 - 4.9 gm/dL 2019 4:27 AM [facility] Bilirubin Total 0.2(L) 0.3 - 1.2 mg/dL 2019 4:27 AM [facility] eGFR by MDRD 2019 4:27 AM [facility] Comment: eGFR calculations are not performed for children under 18 years old. eGFR by MDRD 2019 4:27 AM [facility] Comment: eGFR calculations are not performed for children under 18 years old. Blood BLOOD SPECIMEN / Unknown Venipuncture / Unknown 2019 3:31 AM CDT 2019 3:43 AM [facility] us Steph Taveras DO LAB - CHEMISTRY ORDERABLE S Final Result [facility] [address] [place] [address] * MICROALB/CREAT RATIO URINE RANDOM PANEL (04/18/2017 2:46 PM VOLUNTEER MANAGER) Creatinine Urine 26.83 mg/dL 04/18/19 18 3:33 PM VOLUNTEER MANAGER [facility] Microalbumin Urine <0.5 <1.7 mg/dL 04/18/2017 3:33 PM VOLUNTEER MANAGER [facility] Microalbumin/Crea tinine Ratio <19 <30 mg/g 04/18/2017 3:33 PM VOLUNTEER MANAGER [facility] Urine URINE SPECIMEN OBTAINED BY CLEAN CATCH PROCEDURE / Unknown Collection / Unknown 04/18/2017 2:46 PM VOLUNTEER MANAGER 04/18/2017 2:54 PM VOLUNTEER MANAGER Tarah Kirkland MD LAB - URINE CHEMISTRY ORDERABLE S Final Result Performing Organization Address City/State/RUST Co de Phone Number [facility] [address] [place] [address] from Last 3 Months or Most Recently Relevant to Health Maintenance Insurance MEDICAID - [place] [facility] MEDICAID - OUT OF STATE Advance Directives * Full Code (Latest Code Status on File) Date Activated Date Inactivated Comments 2019 6:31 AM 08/12/2019 3:28 PM * Full Code Date Activated Date Inactivated Comments 07/07/2019 1:09 AM 07/08/2019 3:48 PM * Full Code Date Activated Date Inactivated Comments 06/24/2019 7:44 PM 06/26/2019 8:21 PM * Full Code Date Activated Date Inactivated Comments 06/19/2019 4:37 AM 06/21/2019 8:16 AM * Full Code Date Activated Date Inactivated Comments 05/27/2019 6:42 AM 05/28/2019 10:54 PM
--- OUTSIDE RECORDS SUMMARY | 2025-03-31 09:21 | XMS_ITS | Encounter Summary ---
Author Organization [facility] Address [address] [place] [address] Care Team Providers Care Food And Beverage Operations Manager Name Role Phone Yohana Palomino MD Primary Care Provider Reason for Visit * Reason Onset Date Comments Blood Sugar Problem 09/05/2017 Encounter Details Date Type Department Care Team (Late st Contact Info) Description 09/05/2017 Telephone [facility] Pediatrics - Diabetes Mgmt [facility] [place] [address] Genaro Abraham, JAR CAPPER-TRANSPORTATION ANALYST [address] [place] [id number] Blood Sugar Problem Social History Tobacco Use Types Packs/Day Years Used Date Smoking Tobacco: Passive Smo ke Exposure - Never Smoker Smokeless Tobacco: Never Alcohol Use Standard Drinks/Week Comments No 0 (1 standard drink = 0.6 oz pur e alcohol) Sex and Gender Information Value Date Recorded Sex Assigned at Not on file Legal Sex Male 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 Answer Date of Assessment Author No 10/07/2015 1:37 PM CDT Gita Gentile RN * Is person blind or have [...] Entry Date Author No 10/07/2015 1:37 PM NOLANT Gita Gentile RN documented in this encounter Miscellaneous Notes * Telephone Encounter - Sandrine Mendez RN - 09/05/2017 12:56 PM CDT Mother called to report Denton had low last night after discharge from [facility] in the [facility]. Mother states he was 200 before bed and during the night awakened stating feeling low and with a blood sugar of 58 and given 3 glucose tablets by boyfriend. Then when awoke for the day today was 64. She stated boyfriend thinks he may have given himself insulin so he could eat. She statesboyfriend told her he has done in the past when hungry in order to eat. She denies trying to hurt himself or suicidal when asked at this time. She also stated she was told he had lows overnight at [facility] but was unsure if they were making sure he was at least 100 before going to bed. todl her to secure insulin for safety so that he does not have access to insulin unsupervised. Presently taking Basaglar 29 units. Recommendations per injection protocol: Decrease Basaglar to 27 units Secure insulin so Denton does not have access to unsupervised. To call in to review blood sugars if see trends of highs or lows. Reviewed to treat with 15 grams and always recheck blood sugar in 15 minutes and if still low repeat and recheck. Mother verbalized understanding of recommendations. documented in this encounter Plan of Treatment Not on file documented as of this encounter Visit Diagnoses Not on filedocumented in this encounter Care Teams Food And Beverage Operations Manager Relationship Specialty Start Date End Date Yohana Palomino MD [address] [place] [address] PCP - General 09/26/09 07/21/24 documented as of this encounter
--- OUTSIDE RECORDS SUMMARY | 2025-03-31 09:21 | XMS_ITS | Encounter Summary ---
Author Organization [facility] Address [address] [facility] [place] [address] Care Team Providers Care Tumbler Machine Operator Name Role Phone Yohana Palomino MD Primary Care Provider [phone] Reason for Visit * Reason Onset Date Comments Blood Glucose (Sugar) Review 12/06/2017 Encounter Details Date Type Department Care Team (Late st Contact Info) Description 12/06/2017 Telephone [facility] Pediatrics - Diabetes [address] [address] Tarah Kirkland MD Blood Glucose (Sugar) Review Social History Tobacco Use Types Packs/Day Years Used Date Smoking Tobacco: Passive Smo ke Exposure - Never Smoker Smokeless Tobacco: Never Alcohol Use Standard Drinks/Week Comments No 0 (1 standard drink = 0.6 oz pur e alcohol) Sex and Gender Information Value Date Recorded Sex Assigned at Not on file Legal Sex Male 5:43 AM GAS TREATER Gender Identity Not on file Sexual Orientation [...] Telephone Encounter - Steph Melendrez RN - 02/10/2018 4:02 PM GAS TREATER Mother called to review bgs. See doc flowhseet Plan per injection protocol: Decrease lunch and dinner to 1:6 Mother to call with fax number for school TREATER * Telephone Encounter - Sandrine Mendez RN - 12/06/2017 8:59 AM CDT Mother calling back and states she feels he is acutely eating much more food than he should blood sugar was 107 at bedtime last night and she treated blood sugar. Reviewed bedtime blood sugar of at least 100 is acceptable for his age but she states he drops low if he is not at least 150. Stated he got up in middle of night and ate carton of ice cream, erin noodles and asparagus. Blood sugar then was 460's at 0300 and mother gave correction of Humalog. He is at school at this time so cannot update assessment since not with mother. Spoke with Dr. Fan who advised: To contact psychiatrist today to discuss and if not assistance through psychiatrist to go to local ER. If child would develop moderate to large ketones or if vomits to call diabetes office/exchange. documented in this encounter Plan of Treatment Not on file documented as of this encounter Visit Diagnoses Not on filedocumented in this encounter Care Teams Tumbler Machine Operator Relationship Specialty Start Date End Date Yohana Palomino MD [address] [place] [address] PCP - General 09/26/09 07/21/24 documented as of this encounter
--- OUTSIDE RECORDS SUMMARY | 2025-03-31 09:21 | XMS_ITS | Encounter Summary ---
Author Organization [facility] [place] Address [address] [place] [address] Care Team Providers Care Associate Dentist Name Role Phone Yohana Palomino MD Primary Care Provider [phone] Reason for Visit * Reason Onset Date Comments Consultation 09/29/2009 Patient currentl y on Metadate, at last diabetes f/u it was discussed that this may be the cause of the constantly increased blood sugars. Famlly lost medication and this would be a good time to try something different that may not cause the elevation in blood sugars. Any ideas? Encounter Details Date Type Department Care Team (Late st Contact Info) Description 09/29/2009 Telephone [facility] Pediatrics - Diabetes Mgmt [address] [place] [address]. [place] [address] Jose F Hua MD [address] [place] [phone] Consultation (Patient currently on Metadate, at last diabetes f/u it was discussed that this may be the cause of the constantly increased blood sugars. Famlly lost medication and this would be a good time to try something different that may not cause the elevation in blood sugars. Any ideas? ) Social History Tobacco Use Types Packs/Day Years Used Date Smoking Tobacco: Never Assessed Sex and Gender Information Value Date Recorded Sex Assigned at Not on file Legal Sex Male 5:43 AM ACID TENDER Gender Identity Not on file Sexual Orientation Not on file documented as of this encounter Plan of Treatment Not on file documented as of this encounter Visit Diagnoses Not on filedocumented in this encounter Care Teams Associate Dentist Relationship Specialty Start Date End Date Yohana Palomino MD [address] [facility] [address] [place] [address] PCP - General 09/26/09 07/21/24 documented as of this encounter
--- OUTSIDE RECORDS SUMMARY | 2025-03-31 09:21 | XMS_ITS | Encounter Summary ---
Author Organization [facility] Address [address] [facility] [place] [address] Care Team Providers Care Healthcare Business Analyst Name Role Phone Yohana Palomino MD Primary Care Provider [phone] Reason for Visit * Reason Onset Date Comments MEDICATION REFILL 05/13/2017 Encounter Details Date Type Department Care Team (Late st Contact Info) Description 05/13/2017 Refill [facility] Pediatrics - Endocrinology [address] [place] [address] Genaro Abraham, INDUSTRIAL RELATIONS WORKER-FULL STACK PYTHON DEVELOPER [address] [place] [id number] MEDICATION REFILL Social History Tobacco Use Types Packs/Day Years Used Date Smoking Tobacco: Passive Smo ke Exposure - Never Smoker Smokeless Tobacco: Never Alcohol Use Standard Drinks/Week Comments No 0 (1 standard drink = 0.6 oz pur e alcohol) Sex and Gender Information Value Date Recorded Sex Assigned at Not on file Legal Sex Male 5:43 AM DIPPER OPERATOR Gender Identity Not on file Sexual Orientation [...] on filedocumented in this encounter Care Teams Healthcare Business Analyst Relationship Specialty Start Date End Date Yohana Palomino MD [address] [address] PCP - General 09/26/09 07/21/24 documented as of this encounter
--- OUTSIDE RECORDS SUMMARY | 2025-03-31 09:21 | XMS_ITS | Encounter Summary ---
Author Organization [facility] Address [address] [place] [address] Care Team Providers Care Brim Ironer Hand Name Role Phone Yohana Palomino MD Primary Care Provider [phone] Encounter Details Date Type Department Care Team (Late st Contact Info) Description 06/19/2018 Telephone [facility] Pediatrics - Diabetes [address] [address] Steph Melendrez RN Social History Tobacco Use Types Packs/Day Years Used Date Smoking Tobacco: Passive Smo ke Exposure - Never Smoker Smokeless Tobacco: Never Alcohol Use Standard Drinks/Week Comments No 0 (1 standard drink = 0.6 oz pur e alcohol) Sex and Gender Information Value Date Recorded Sex Assigned at Not on file Legal Sex Male 5:43 AM ADVISOR ADVOCATE AN[employer]EL CO FOUNDER Gender Identity Not on file Sexual Orientation Not on file documented as of this encounter Functional Status * Is person deaf or have serious hearing difficulty? Answer Date of Assessment Author No 10/07/2015 1:37 PM Gita Trammell RN * Is person blind or have serious difficulty seeing? Answer Date of Assessment Author No 10/07/2015 1:37 PM Gita Trammell RN * Does person have serious difficulty [...] Telephone Encounter - Steph Melendrez RN - 06/19/2018 10:06 AM CDT Called and verified dosing for school letter with mother as 1 unit per 5 grams of carbs and 1 unit per 50 points over 150 with a max correction of 6 units. documented in this encounter Plan of Treatment Not on file documented as of this encounter Visit Diagnoses Not on filedocumented in this encounter Care Teams Brim Ironer Hand Relationship Specialty Start Date End Date Yohana Palomino MD [address] [address] PCP - General 09/26/09 07/21/24 documented as of this encounter
--- OUTSIDE RECORDS SUMMARY | 2025-03-31 09:21 | XMS_ITS | Encounter Summary ---
Author Organization [facility] Address [address] [facility] [place] [address] Care Team Providers Care Attending Anesthesiologist Name Role Phone Yohana Palomino MD Primary Care Provider [phone] Reason for Visit * Reason Onset Date Comments LOW BLOOD SUGAR 07/29/2018 Encounter Details Date Type Department Care Team (Late st Contact Info) Description 07/29/2018 Telephone [facility] Pediatrics - Diabetes [address] [address] Urban Fan MD [address] [place] [address] LOW BLOOD SUGAR Social History Tobacco Use Types Packs/Day Years Used Date Smoking Tobacco: Never Smokeless Tobacco: Never Alcohol Use Standard Drinks/Week Comments No 0 (1 standard drink = 0.6 oz pur e alcohol) Sex and Gender Information Value Date Recorded Sex Assigned at Not on file Legal Sex Male 5:43 AM TYPESETTERS PRINTER Gender Identity Not on file Sexual Orientation [...] Telephone Encounter - Steph Melendrez RN - 01/16/2019 4:06 PM CDT [facility] [place] [facility] * Telephone Encounter - Yong Sierra RN - 07/31/2018 4:11 PM CDT I returned mom's call, she was having a verbal altercation with Denton while I was talking with her. Mom wants to know if it is normal for blood sugar to go from 144 upon waking yesterday to HI at lunch wihtout eating. I advised it is unlikely, but I don't recommend fighting with Denton about it- he was cussing in the background, mom was screaming at him. Reviewed blood sugars, see doc flow sheet. Last documented dose change was 20 Lantus and 1:15 at meals, this was communicated to nurse Alegria and orders were faxed. Per mom and Kai, nurse Marte told them that we said to revert back to original doses, they have been giving 25 Lantus and 1:9 at home and school, Kai insists. I pressed mom on the fact that Dr Meng told her to change the dose, she said I did but the nurse told me you all said to go back to original doses, I see no record of our staff making other changes. I do not show documentation of our staff recommending this change back to original doses however if they have been giving Lantus 25 and 1:9 continue to do so, as bgs are not low. They deny any lowssince Carey am. PLAN: Mother to speak with Rosanna and Airam tomorrow, find out if there was a breakdown in communication andwhat doses have they been giving. Start fresh now. Test pre meal, at bedtime, count carbs diligently and dose diligently. I tried to de-escalate the volatile nature of the conversation between mom and Kai. Mother agreed, was fixated on how bg could go from in-range to HI- she wanted me to insist that he is sneaking so she could ground him. I reviewed the factors that influence bgs but refused to get in the middle of a tense situation. * Telephone Encounter - Yong Sierra RN - 07/29/2018 9:[address] Fan reports he spoke with parent via exchange, lows bgs persist, he reports he changed Lantus to 20 units and changed carb ratio to 1:15, may go to 1:20 if lows persist. I verbally updated nurse Airam and will send orders. documented in this encounter Plan of Treatment Not on file documented as of this encounter Visit Diagnoses Not on filedocumented in this encounter Care Teams Attending Anesthesiologist Relationship Specialty Start Date End Date Yohana Palomino MD [address] [facility] [address] [place] [address] PCP - General 09/26/09 07/21/24 documented as of this encounter
[2025-03-31 09:23] LABS: HIV 1/2 Ab P24 Ag Result Negative (Negative)
[2025-03-31] MEDS: DEXTROSE 5%/0.45% SOD CHL 1,000 ML 75 ML IV CONT (11:25)
--- NOTE | 2025-03-31 11:40 | PCFNICU ---
ICU Rounding Note: Pt current nutrition is DBCC. Last recorded weight is 60.3 kg Bowel Motility: Last reported BM 03/30 Labs Reviewed: Glu 140, HbA1c > 14% Meds Noted: Lantus, NovoLog, Protonix Skin: WNL Additional Notes: Patient admitted with DKA. Familiar to me from previous admits. Unable to eat breakfast today. Refused diet education at this time. Agree with diet orders. Following daily in ICU rounds.
[2025-03-31 15:27] LABS: Albumin Level 3.4 g/dL (3.5-5.1); Anion Gap 6 mmol/L (4-12); Blood Urea Nitrogen 16 mg/dL (9-20); Calcium 8.6 mg/dL (8.4-10.2); Carbon Dioxide 23 mmol/L (22-30); Chloride 108 mmol/L (98-107); Estimated CRCL calculation 137 ml/min; Estimated Glomerular Filt Rate > 60; Glucose 163 mg/dL (65-110); Potassium 3.9 mmol/L (3.4-5.0); Sodium 137 mmol/L (137-145)
--- NOTE | 2025-03-31 17:51 | PC.NURSE ---
Patient transfered to room 327. Report given to RIKKI Barba. All questions answered. Belongings sent.
--- NOTE | 2025-03-31 18:01 | PC.NURSE ---
Addendum entered by Freda Curtis RN 03/31/25 18:15: Report from JOSE Original Note: This patient, Denton Ring, was received from [ICU] on 03/31/25 at 1801. Patient/family oriented to unit policies and routines
[2025-04-01] MEDS: ONDANSETRON INJ 4 MG/2 ML VIAL IV PUSH ×2 (02:03→08:07)
[2025-04-01 06:00] VITALS: BP 122/71; PULSE 95; RESP 17; TEMP 36.4; O2SAT 98
[2025-04-01] MEDS: DEXTROSE 5%/0.45% SOD CHL 1,000 ML 75 ML IV CONT (06:11)
--- NOTE | 2025-04-01 06:14 | PC.NURSE ---
Assistant Professor Of Dietetics notified this nurse that this patient was refusing morning lab draws. Spoke with patient. Patient stated that we kept him up all night coming into his room/just didn't sleep well, already had 5-6 holes in his arm, was not in the mood. Patient ultimately refused, but asked if he could have them drawn later. According to interior design professor, this is not unusual for him.
[2025-04-01] MEDS: INSULIN ASPART (*BKC) 100 UNITS/ML SUB-Q ×2 (08:04→17:41)
--- NOTE | 2025-04-01 08:31 | P.PNIM_ITS ---
Assessment and Plan Assessment and Plan (1) DKA, type 1: Qualifiers: Diabetes mellitus complication detail: without coma Qualified Code(s): E10.10 - Type 1 diabetes mellitus with ketoacidosis without coma Code(s): E10.10 - Type 1 diabetes mellitus with ketoacidosis without coma Status: Acute (2) Severe protein-calorie malnutrition: Code(s): E43 - Unspecified severe protein-calorie malnutrition Status: Acute (3) Homeless single person: Code(s): Z59.00 - Homelessness unspecified Status: Acute Plan Patient has DKA with chronically uncontrolled diabetes from noncompliance with medical follow-up. Ketosis is likely multifactorial with component of starvation ketosis and diabetic ketosis. Patient has been admitted to the ICU and placed on insulin drip and IV fluids with adjustments per standard DKA protocol. Will monitor serial electrolyte panels for monitoring until gap closure and normalization of serum bicarb. asthma educator has been consulted. Cobol Mainframe Developer has been consulted. Will monitor strict I&O's. Patient has severe protein calorie malnutrition and muscle wasting due to what is likely chronic ketotic state and uncontrolled diabetes. Dietitian has been consulted and the importance of compliance with diabetic medications has been discussed in detail. Care coordination has been consulted persistence with financial an medication resources. Patient does have leukocytosis and tachycardia likely due to volume depletion/dehydration. Although leukocytosis is higher than expect just from dehydration. Will monitor closely for other signs of infection. Chest x-ray was negative for pulmonary process. UA was negative for evidence of infection. 04/01 no labs today- will order- pt refused but agreeable to get them done later BS 211 this am switch lantus to HS dose stop Dextrose infusion anion gap 6 03/31 Medical Record Review I have reviewed the following patient records and this information was taken into consideration when formulating the assessment and plan.: previous labs Time Spent With Patient Time with patient: 25 - 35 minutes Subjective Date/time seen: 04/01/25 08:31 Interval history: 24-year-old homeless male with past medical history of type 1 diabetes mellitus chronically uncontrolled diabetes mellitus due presented to the ER via EMS due to feeling ill. Patient reportedly took 44 units of Lantus and 12 units of shorter acting insulin at 13:00 today. His blood glucose on Accu-Chek for EMS was reading high. He received 800 mL of LR and Zofran prior to arrival to the hospital. He when out drinking 2 nights ago. The patient does not have a family physician. He is homeless but with staying with a friend. He has been getting his medications by visiting ERs. The patient arrived to the ICU with discharge papers from [facility] which demonstrates he is post be on medications including Lantus 15 units nightly, moderate sliding scale insulin and 3 units of lispro with meals. He is also supposed be on gabapentin 400 mg b.i.d. prazosin 3 mg q.h.s. venlafaxine. All of this information was obtained from ER documentation and review of the records from [place]. The patient refuses to answer any questions. He states that he does not want to be bothered and initially was refusing all exam whatsoever.... Pt is seen and examined.no labs for today. He refused labs and was not interested in exam. I had discussion with him that we need labs to monitor his BC, kidney function- and he is agreeable to get it done in a little bit after his nausea is beetter. He reports drinking and eating ok, just some intermitten nausea. Review of Systems 2 Review of Systems: Review of systems unobtainable due to lack of patient cooperation Exam Narrative: Weight 50.4 kg BMI 15.7 Const: General: comfortable HENMT: Other: Lips are dry, head is normocephalic atraumatic Resp: Other: refused exam Cardio: Other: refused exam GI: Other: refused exam Skin: Other: Patient has discoloration of his abdomen abdominal wall pink in blue in color possibly staining due to dyes, patient has dirt under his fingernails skin is warm to touch Neuro: Other: Alert oriented to person place and time, speech is clear, no obvious facial asymmetry but exam extremely limited Extrem: Other: Patient has generalized muscle wasting, unable to assess feet or strength Psych: Affect: Anxious affect present Other: uncooperative Objective Data Vital Signs Vital Signs: Vital Signs - 24 hr 03/31/25 09:00 03/31/25 10:00 03/31/25 10:00 Temperature 98.6 F Pulse Rate 99 100 74 Respiratory Rate 13 14 Blood Pressure 126/84 116/87 Pulse Oximetry 100 98 Oxygen Delivery 03/31/25 11:00 03/31/25 12:00 03/31/25 12:00 Temperature Pulse Rate 100 103 H 103 H Respiratory Rate 14 16 Blood Pressure 126/85 Pulse Oximetry 100 Oxygen Delivery Room Air 03/31/25 12:00 03/31/25 13:00 03/31/25 14:00 Temperature 97.4 F L Pulse Rate 97 87 87 Respiratory Rate 14 Blood Pressure 120/78 103/66 Pulse Oximetry 98 Oxygen Delivery 03/31/25 14:00 03/31/25 15:00 03/31/25 16:00 Temperature 98.3 F 97.9 F Pulse Rate 84 104 H 100 Respiratory Rate 16 14 16 Blood Pressure 124/82 135/85 135/85 Pulse Oximetry 98 Oxygen Delivery 03/31/25 20:00 03/31/25 20:22 04/01/25 06:00 Temperature 97.8 F 97.5 F L Pulse Rate 98 98 95 Respiratory Rate 17 17 17 Blood Pressure 121/80 122/71 Pulse Oximetry 97 97 98 Oxygen Delivery Room Air Intake/Output Intake/Output: Intake & Output 03/29/25 03/30/25 03/31/25 04/01/25 23:59 23:59 23:59 23:59 Intake Total 3014.9 1584.1 1350 Output Total 50 2175 900 Balance 2964.9 -590.9 450 Meds/Results Medications: Active Medications Generic Name Dose Route Start Last Admin Trade Name Freq PRN Reason Stop Dose Admin Calcium Carbonate 200 mg 03/31/25 00:05 Calcium Carbonate (Tums) 500 Mg (200 Mg Elemental) PO Q6H PRN Indigestion Dextrose 12.5 gm 03/31/25 07:11 Dextrose 50% 25 Gm/50 Ml Syringe IV PUSH PRN PRN Hypoglycemia Protocol Enoxaparin Sodium 40 mg 03/31/25 09:00 04/01/25 08:06 Enoxaparin 40 Mg/0.4 Ml Syringe SUB-Q Not Given DAILY REGI Glucagon 1 mg 03/31/25 07:11 Glucagon For Inj 1 Mg Vial IM PRN PRN Hypoglycemia Protocol Glucose 15 gm 03/31/25 07:11 Glucose Oral Gel 15 Gm Of Glucse In 37.5 Gm Tube PO PRN PRN Hypoglycemia Protocol Dextrose 1,000 mls @ 100 mls/hr 03/31/25 07:11 Dextrose 5% 1,000 Ml IVPB PRN PRN Hypoglycemia Protocol Dextrose/Sodium Chloride 1,000 mls @ 75 mls/hr 03/31/25 11:15 04/01/25 06:11 Dextrose 5% Sodium Chloride 0.45% IV CONT 75 mls/hr .[id number] REGI Administration Insulin Aspart 3 - 6 units 03/31/25 12:00 04/01/25 08:04 Insulin Aspart (*Bkc) 100 Units/Ml SUB-Q 3 units TIDWM REGI Administration Protocol Insulin Glargine 20 units 03/31/25 08:15 03/31/25 08:19 Insulin Glargine (*Bkc) 100 Units/Ml SUB-Q 20 units DAILY REGI Administration Ondansetron HCl 4 mg 03/31/25 00:05 04/01/25 08:07 Ondansetron Inj 4 Mg/2 Ml Vial IV PUSH 4 mg Q4H PRN Administration Nausea And Vomiting Radiology Results: ITS Impressions Chest X-Ray 03/30/25 21:16 IMPRESSION: 1: NO ACUTE CARDIOPULMONARY DISEASE. Labs Labs: Laboratory Results - last 24 hr 03/31/25 03/31/25 03/31/25 02:35 08:12 08:52 Sodium 138 138 Cancelled Potassium 4.1 3.9 Cancelled Chloride 109 H 108 H Cancelled Carbon Dioxide 20 L 24 Cancelled Anion Gap 9 6 Cancelled BUN 22 H 19 Cancelled Creatinine 0.72 0.70 Cancelled Estim Creat Clear Calc 118 121 Cancelled Estimated GFR > 60 > 60 Cancelled Glucose 195 H 140 H Cancelled POC Capillary Glucose Calcium 8.7 8.9 Cancelled Phosphorus 1.3 L Cancelled Magnesium 1.8 Cancelled Total Bilirubin 0.4 AST 19 ALT 16 Alkaline Phosphatase 112 Total Protein 7.1 Albumin 3.7 3.8 Cancelled HIV 1&2 Ab/P24 Ag 4thGn Negative 03/31/25 03/31/25 03/31/25 08:56 11:24 15:05 Sodium 137 Potassium 3.9 Chloride 108 H Carbon Dioxide 23 Anion Gap 6 BUN 16 Creatinine 0.61 L Estim Creat Clear Calc 137 Estimated GFR > 60 Glucose 163 H POC Capillary Glucose 148 H 166 H Calcium 8.6 Phosphorus 1.7 L Magnesium Total Bilirubin AST ALT Alkaline Phosphatase Total Protein Albumin 3.4 L HIV 1&2 Ab/P24 Ag 4thGn 03/31/25 04/01/25 19:53 07:51 Sodium Potassium Chloride Carbon Dioxide Anion Gap BUN Creatinine Estim Creat Clear Calc Estimated GFR Glucose POC Capillary Glucose 162 H 211 H Calcium Phosphorus Magnesium Total Bilirubin AST ALT Alkaline Phosphatase Total Protein Albumin HIV 1&2 Ab/P24 Ag 4thGn Quality VTE Prophylaxis VTE prophylaxis: pharmacologic ordered (Lovenox 40 mg subQ daily)
[2025-04-01 09:39] LABS: Hematocrit 35.8 % (42.0-52.0); Hemoglobin 12.4 g/dL (14.0-18.0); Mean Corpuscular HGB Conc 34.6 g/dl (32-36); Mean Corpuscular Hemoglobin 29.6 pg (26-34); Mean Corpuscular Volume 85.4 fl (80-100); Platelet Count Result 278 k/mm3 (150-375); Red Blood Count 4.19 M/mm3 (4.6-6.20); White Blood Count 10.8 K/mm3 (4.5-10.0)
[2025-04-01 10:07] LABS: Albumin Level 3.2 g/dL (3.5-5.1); Anion Gap 7 mmol/L (4-12); Blood Urea Nitrogen 9 mg/dL (9-20); Calcium 8.6 mg/dL (8.4-10.2); Carbon Dioxide 25 mmol/L (22-30); Chloride 106 mmol/L (98-107); Estimated CRCL calculation 139 ml/min; Estimated Glomerular Filt Rate > 60; Glucose 168 mg/dL (65-110); Potassium 3.3 mmol/L (3.4-5.0); Sodium 138 mmol/L (137-145)
[2025-04-01 14:00] VITALS: BP 134/84; PULSE 84; RESP 12; TEMP 36.1; O2SAT 99
[2025-04-01] MEDS: SUCRALFATE 1 GM TABLET PO ×2 (17:41→20:37)
[2025-04-01 19:55] VITALS: BP 110/81; PULSE 92; RESP 16; TEMP 36.1; O2SAT 100
[2025-04-01] MEDS: INSULIN GLARGINE (*BKC) 100 UNITS/ML 20 UNITS SUB-Q (20:39)
[2025-04-02 04:45] VITALS: BP 115/84; PULSE 81; RESP 20; TEMP 36.1; O2SAT 98
[2025-04-02] MEDS: SUCRALFATE 1 GM TABLET PO ×4 (06:12→20:38)
[2025-04-02] MEDS: INSULIN ASPART (*BKC) 100 UNITS/ML SUB-Q ×4 (08:09→21:56)
[2025-04-02] MEDS: ONDANSETRON INJ 4 MG/2 ML VIAL IV PUSH (11:22)
[2025-04-02] MEDS: POTASSIUM CHLORIDE 20 MEQ ER TABLET 40 MEQ PO (11:23)
--- NOTE | 2025-04-02 12:28 | PM.IMPN2 ---
Assessment and Plan Assessment and Plan (1) DKA, type 1: Qualifiers: Diabetes mellitus complication detail: without coma Qualified Code(s): E10.10 - Type 1 diabetes mellitus with ketoacidosis without coma Code(s): E10.10 - Type 1 diabetes mellitus with ketoacidosis without coma Status: Acute (2) Severe protein-calorie malnutrition: Code(s): E43 - Unspecified severe protein-calorie malnutrition Status: Acute (3) Homeless single person: Code(s): Z59.00 - Homelessness unspecified Status: Acute Plan Patient has DKA with chronically uncontrolled diabetes from noncompliance with medical follow-up. Ketosis is likely multifactorial with component of starvation ketosis and diabetic ketosis. Patient has been admitted to the ICU and placed on insulin drip and IV fluids with adjustments per standard DKA protocol. Will monitor serial electrolyte panels for monitoring until gap closure and normalization of serum bicarb. health educator has been consulted. Service Support Representative has been consulted. Will monitor strict I&O's. Patient has severe protein calorie malnutrition and muscle wasting due to what is likely chronic ketotic state and uncontrolled diabetes. Dietitian has been consulted and the importance of compliance with diabetic medications has been discussed in detail. Care coordination has been consulted persistence with financial an medication resources. Patient does have leukocytosis and tachycardia likely due to volume depletion/dehydration. Although leukocytosis is higher than expect just from dehydration. Will monitor closely for other signs of infection. Chest x-ray was negative for pulmonary process. UA was negative for evidence of infection. 04/02 s/p Dextrose infusion anion gap 6 03/31 increase lantus to 25 units Q HS add Chloraseptic spray for sore throat plan for dc tomorrow if tolerating diet and BS stable Medical Record Review I have reviewed the following patient records and this information was taken into consideration when formulating the assessment and plan.: previous labs, previous ER visits and previous hospitalizations Subjective Date/time seen: 04/02/25 12:28 Interval history: Patient seen for a follow up visit. Patient lying in bed, in no acute distress. Patient is disheveled and malodorous. Patient is cooperative with exam today. Patient reports his throat hurts, the Carafate is not helping. We will add Chloraseptic throat spray, patient is agreeable. Patient's blood sugars elevated, increase Lantus to 25 units daily plus sliding scale. Patient reports he doesn't have a PCP so he is unable to get his medications. Patient informed he will discharge with 30 days of insulin to bridge him until he finds a PCP. Review of Systems Review of Systems: All systems reviewed & are unremarkable except as noted in HPI and below Exam Const: General: comfortable and no acute distress HENMT: Face/Nose/Sinus: Normal nares present Mouth: Yes moist mucous membranes Eyes: General: appearance normal, both eyes and all related structures Sclera: sclerae normal Neck: Neck: supple Resp: Effort & Inspection: normal respiratory effort Auscultation: clear to auscultation bilaterally Cardio: Rate: regular rate Rhythm: regular rhythm GI: GI Palp: Yes Soft to palpation Auscultation: normal bowel sounds Skin: General skin exam: normal color and no rashes or lesions noted Neuro: Speech: normal speech Motor exam (neuro): 5/5 motor strength present throughout Sensory Exam: normal sensation Extrem: General: normal to inspection Psych: Mental Status: mental status grossly normal Affect: Anxious affect present Objective Data Vital Signs Vital Signs: Vital Signs - 24 hr 04/01/25 14:00 04/01/25 19:55 04/02/25 04:45 Temperature 96.9 F L 97 F L 97 F L Pulse Rate 84 92 81 Respiratory Rate 12 16 20 Blood Pressure 134/84 110/81 115/84 Pulse Oximetry 99 100 98 Oxygen Delivery 04/02/25 09:15 Temperature Pulse Rate Respiratory Rate Blood Pressure Pulse Oximetry Oxygen Delivery Room Air Intake/Output Intake/Output: Intake & Output 03/30/25 03/31/25 04/01/25 04/02/25 23:59 23:59 23:59 23:59 Intake Total 3014.9 1584.1 2230 860 Output Total 50 2175 900 Balance 2964.9 -590.9 1330 860 Meds/Results Medications: Active Medications Generic Name Dose Route Start Last Admin Trade Name Freq PRN Reason Stop Dose Admin Calcium Carbonate 200 mg 03/31/25 00:05 Calcium Carbonate (Tums) 500 Mg (200 Mg Elemental) PO Q6H PRN Indigestion Dextrose 12.5 gm 03/31/25 07:11 Dextrose 50% 25 Gm/50 Ml Syringe IV PUSH PRN PRN Hypoglycemia Protocol Enoxaparin Sodium 40 mg 03/31/25 09:00 04/02/25 09:06 Enoxaparin 40 Mg/0.4 Ml Syringe SUB-Q Not Given DAILY REGI Glucagon 1 mg 03/31/25 07:11 Glucagon For Inj 1 Mg Vial IM PRN PRN Hypoglycemia Protocol Glucose 15 gm 03/31/25 07:11 Glucose Oral Gel 15 Gm Of Glucse In 37.5 Gm Tube PO PRN PRN Hypoglycemia Protocol Insulin Aspart 3 - 6 units 03/31/25 12:00 04/02/25 11:41 Insulin Aspart (*Bkc) 100 Units/Ml SUB-Q 4 units TIDWM REGI Administration Protocol Insulin Glargine 20 units 04/01/25 21:00 04/01/25 20:39 Insulin Glargine (*Bkc) 100 Units/Ml SUB-Q 20 units HS REGI Administration Ondansetron HCl 4 mg 03/31/25 00:05 04/02/25 11:22 Ondansetron Inj 4 Mg/2 Ml Vial IV PUSH 4 mg Q4H PRN Administration Nausea And Vomiting Sucralfate 1 gm 04/01/25 17:25 04/02/25 11:20 Sucralfate 1 Gm Tablet PO 1 gm ACHS REGI Administration Radiology Results: ITS Impressions Chest X-Ray 03/30/25 21:16 IMPRESSION: 1: NO ACUTE CARDIOPULMONARY DISEASE. Labs Labs: Laboratory Results - last 24 hr 04/01/25 04/01/25 04/02/25 16:43 19:51 08:05 POC Capillary Glucose 284 H 280 H 219 H 04/02/25 11:34 POC Capillary Glucose 269 H Quality VTE Prophylaxis VTE prophylaxis: pharmacologic ordered (Lovenox 40 mg subQ daily)
[2025-04-02 14:00] VITALS: BP 131/51; PULSE 84; RESP 16; TEMP 36.6; O2SAT 100
[2025-04-02 20:07] VITALS: BP 130/84; PULSE 88; RESP 18; TEMP 36.2; O2SAT 98
[2025-04-02] MEDS: INSULIN GLARGINE (*BKC) 100 UNITS/ML 25 UNITS SUB-Q (20:45)
[2025-04-02] MEDS: CALCIUM CARBONATE (TUMS) 500 MG (200 MG ELEMENTAL) PO (22:00)
[2025-04-03 05:26] VITALS: BP 125/79; PULSE 82; RESP 14; TEMP 36.3; O2SAT 99
[2025-04-03] MEDS: INSULIN ASPART (*BKC) 100 UNITS/ML SUB-Q ×4 (09:15→21:41)
[2025-04-03 12:16] LABS: Hematocrit 39.1 % (42.0-52.0); Hemoglobin 13.2 g/dL (14.0-18.0); Immature Granulocyte Percent A 0.7 % (0-0.5); Immature Platelet Fraction Pct 5.1 % (0.9-11.2); Lymphocytes Absolute Auto 1.62 K/mm3 (0.9-3.2); Mean Corpuscular HGB Conc 33.8 g/dl (32-36); Mean Corpuscular Hemoglobin 29.5 pg (26-34); Mean Corpuscular Volume 87.5 fl (80-100); Nucleated Red Blood Cells Absolute Auto 0.000 K/mm3 (0.0-0.012); Nucleated Red Blood Cells Perc 0.0 % (0.0-0.2); Platelet Count Result 172 k/mm3 (150-375); Red Blood Count 4.47 M/mm3 (4.6-6.20); White Blood Count 4.6 K/mm3 (4.5-10.0)
[2025-04-03 12:25] LABS: Alanine Aminotransferase 14 U/L (6-50); Albumin Level 3.1 g/dL (3.5-5.1); Alkaline Phosphatase 85 U/L (38-126); Anion Gap 3 mmol/L (4-12); Aspartate Amino Transferase 20 U/L (17-59); Bilirubin,Total 0.2 mg/dL (0.2-1.3); Blood Urea Nitrogen 8 mg/dL (9-20); Calcium 8.8 mg/dL (8.4-10.2); Carbon Dioxide 30 mmol/L (22-30); Chloride 104 mmol/L (98-107); Estimated CRCL calculation 143 ml/min; Estimated Glomerular Filt Rate > 60; Glucose 264 mg/dL (65-110); Magnesium 1.7 mg/dL (1.6-2.3); Potassium 3.8 mmol/L (3.4-5.0); Sodium 137 mmol/L (137-145); Total Protein 6.0 g/dL (6.3-8.2)
[2025-04-03] MEDS: SUCRALFATE 1 GM TABLET PO (12:26)
[2025-04-03] MEDS: ONDANSETRON INJ 4 MG/2 ML VIAL IV PUSH (12:26)
[2025-04-03 12:29] LABS: Schistocytes None Seen
[2025-04-03] MEDS: CALCIUM CARBONATE (TUMS) 500 MG (200 MG ELEMENTAL) PO ×2 (12:38→21:54)
[2025-04-03] MEDS: PANTOPRAZOLE 40 MG TABLET PO (13:02)
[2025-04-03] MEDS: GABAPENTIN 100 MG CAPSULE 200 MG PO ×2 (13:02→17:43)
[2025-04-03 14:00] VITALS: BP 136/87; PULSE 91; RESP 12; TEMP 36.4; O2SAT 100
[2025-04-03] MEDS: SUCRALFATE SUSP 100 MG/ML 10 ML UDC 1000 MG PO ×2 (17:37→21:41)
--- NOTE | 2025-04-03 17:39 | PM.IMPN2 ---
Assessment and Plan Assessment and Plan (1) DKA, type 1: Qualifiers: Diabetes mellitus complication detail: without coma Qualified Code(s): E10.10 - Type 1 diabetes mellitus with ketoacidosis without coma Code(s): E10.10 - Type 1 diabetes mellitus with ketoacidosis without coma Status: Acute (2) Severe protein-calorie malnutrition: Code(s): E43 - Unspecified severe protein-calorie malnutrition Status: Acute (3) Homeless single person: Code(s): Z59.00 - Homelessness unspecified Status: Acute Plan Patient has DKA with chronically uncontrolled diabetes from noncompliance with medical follow-up. Ketosis is likely multifactorial with component of starvation ketosis and diabetic ketosis. Patient has been admitted to the ICU and placed on insulin drip and IV fluids with adjustments per standard DKA protocol. Will monitor serial electrolyte panels for monitoring until gap closure and normalization of serum bicarb. consumer educator has been consulted. Tool And Die Assembler has been consulted. Will monitor strict I&O's. Patient has severe protein calorie malnutrition and muscle wasting due to what is likely chronic ketotic state and uncontrolled diabetes. Dietitian has been consulted and the importance of compliance with diabetic medications has been discussed in detail. Care coordination has been consulted persistence with financial an medication resources. Patient does have leukocytosis and tachycardia likely due to volume depletion/dehydration. Although leukocytosis is higher than expect just from dehydration. Will monitor closely for other signs of infection. Chest x-ray was negative for pulmonary process. UA was negative for evidence of infection. 04/02 s/p Dextrose infusion anion gap 6 03/31 increase lantus to 25 units Q HS add Chloraseptic spray for sore throat plan for dc tomorrow if tolerating diet and BS stable 04/03 patient reporting nausea and vomiting, not tolerating diet reports abdominal pain and epigastric pain that worsens with eating tenderness in RUQ with light palpation check CT chest/abdomen/pelvis add phenergan IM for 2nd line agent for N/V change carafate to liquid form increase lantus to 30 units Q HS Medical Record Review I have reviewed the following patient records and this information was taken into consideration when formulating the assessment and plan.: previous labs, previous ER visits and previous hospitalizations Subjective Date/time seen: 04/03/25 17:39 Interval history: Patient seen for a follow up visit. Patient lying in bed, reports he feels nauseated. Patient reports he is unable to eat as he feels nauseated and he vomited after breakfast this morning. Patient reports he has abdominal pain and points to the epigastric area. Patient reports his whole esophagus spears and is worse with eating or drinking. Patient was given PRN ondansetron and Chloraseptic spray. I will change patient's Carafate from a tablet to the liquid. Patient's abdominal exam revealed tenderness to light palpation in the right upper quadrant. Order CT chest/abdomen ad pelvis with contrast. Phenergan IM added as second line agent for nausea and vomiting. Patient's blood sugars still elevated, will increase lantus dose again. Review of Systems Review of Systems: All systems reviewed & are unremarkable except as noted in HPI and below Exam Const: General: comfortable and no acute distress HENMT: Face/Nose/Sinus: Normal nares present Mouth: Yes moist mucous membranes Eyes: General: appearance normal, both eyes and all related structures Sclera: sclerae normal Neck: Neck: supple Resp: Effort & Inspection: normal respiratory effort Auscultation: clear to auscultation bilaterally Cardio: Rate: regular rate Rhythm: regular rhythm GI: GI Palp: Yes Soft to palpation Auscultation: normal bowel sounds Other: tenderness to light palpation in the RUQ Skin: General skin exam: normal color and no rashes or lesions noted Neuro: Speech: normal speech Motor exam (neuro): 5/5 motor strength present throughout Sensory Exam: normal sensation Extrem: General: normal to inspection Psych: Mental Status: mental status grossly normal Affect: Anxious affect present Objective Data Vital Signs Vital Signs: Vital Signs - 24 hr 04/02/25 20:07 04/03/25 05:26 04/03/25 08:00 Temperature 97.1 F L 97.4 F L Pulse Rate 88 82 Respiratory Rate 18 14 Blood Pressure 130/84 125/79 Pulse Oximetry 98 99 Oxygen Delivery Room Air 04/03/25 14:00 Temperature 97.6 F Pulse Rate 91 Respiratory Rate 12 Blood Pressure 136/87 Pulse Oximetry 100 Oxygen Delivery Intake/Output Intake/Output: Intake & Output 03/31/25 04/01/25 04/02/2525 23:59 23:59 23:59 23:59 Intake Total 1584.1 2230 1218 118 Output Total 2175 900 1 Balance -590.9 1330 1217 118 Meds/Results Medications: Active Medications Generic Name Dose Route Start Last Admin Trade Name Freq PRN Reason Stop Dose Admin Calcium Carbonate 200 mg 03/31/25 00:05 04/03/25 12:38 Calcium Carbonate (Tums) 500 Mg (200 Mg Elemental) PO 200 mg Q6H PRN Administration Indigestion Dextrose 12.5 gm 03/31/25 07:11 Dextrose 50% 25 Gm/50 Ml Syringe IV PUSH PRN PRN Hypoglycemia Protocol Enoxaparin Sodium 40 mg 03/31/25 09:00 04/03/25 12:26 Enoxaparin 40 Mg/0.4 Ml Syringe SUB-Q Not Given DAILY REGI Gabapentin 200 mg 04/03/25 13:00 04/03/25 13:02 Gabapentin 100 Mg Capsule PO 200 mg TID REGI Administration Glucagon 1 mg 03/31/25 07:11 Glucagon For Inj 1 Mg Vial IM PRN PRN Hypoglycemia Protocol Glucose 15 gm 03/31/25 07:11 Glucose Oral Gel 15 Gm Of Glucse In 37.5 Gm Tube PO PRN PRN Hypoglycemia Protocol Insulin Aspart 3 - 6 units 03/31/25 12:00 04/03/25 13:08 Insulin Aspart (*Bkc) 100 Units/Ml SUB-Q 4 units TIDWM REGI Administration Protocol Insulin Glargine 25 units 04/02/25 21:00 04/02/25 20:45 Insulin Glargine (*Bkc) 100 Units/Ml SUB-Q 25 units HS REGI Administration Ondansetron HCl 4 mg 03/31/25 00:05 04/03/25 12:26 Ondansetron Inj 4 Mg/2 Ml Vial IV PUSH 4 mg Q4H PRN Administration Nausea And Vomiting Pantoprazole Sodium 40 mg 04/04/25 09:00 Pantoprazole 40 Mg Tablet PO QAM REGI Phenol 1 spray 04/02/25 14:02 Phenol/Sod Pheno Ruth Gtz (*Bkc) MUCOUS MEM PRN PRN Sore Throat Promethazine HCl 25 mg 04/03/25 15:23 Promethazine Hcl 25 Mg/Ml Ampul IM Q6H PRN Nausea And Vomiting Sucralfate 1,000 mg 04/03/25 16:30 Sucralfate Susp 100 Mg/Ml 10 Ml Udc PO ACHS REGI Radiology Results: ITS Impressions Chest X-Ray 03/30/25 21:16 IMPRESSION: 1: NO ACUTE CARDIOPULMONARY DISEASE. Labs Labs: Laboratory Results - last 24 hr 04/02/25 04/02/25 04/03/25 20:36 23:04 07:34 WBC RBC Hgb Hct MCV MCH MCHC RDW Plt Count MPV Immature Gran % (Auto) Neut % (Auto) Lymph % (Auto) Hitchcock % (Auto) Eos % (Auto) Baso % (Auto) Lymph # (Auto) Hitchcock # (Auto) Eos # (Auto) Baso # (Auto) Abs Immat Gran (auto) Absolute Neuts (auto) Absolute Nucleated RBC Band Neutrophils % Nucleated RBC % Platelet Estimate Clumped Platelets % Immature Plt Fraction Schistocytes Sodium Potassium Chloride Carbon Dioxide Anion Gap BUN Creatinine Estim Creat Clear Calc Estimated GFR Glucose POC Capillary Glucose 338 H 275 H 238 H Calcium Magnesium Total Bilirubin AST ALT Alkaline Phosphatase Total Protein Albumin 04/03/25 04/03/25 04/03/25 11:33 12:09 16:58 WBC 4.6 RBC 4.47 L Hgb 13.2 L Hct 39.1 L MCV 87.5 MCH 29.5 MCHC 33.8 RDW 12.6 Plt Count 172 MPV 9.7 Immature Gran % (Auto) 0.7 H Neut % (Auto) 52.5 Lymph % (Auto) 35.4 Hitchcock % (Auto) 9.4 H Eos % (Auto) 1.1 Baso % (Auto) 0.9 Lymph # (Auto) 1.62 Hitchcock # (Auto) 0.4 Eos # (Auto) 0.1 Baso # (Auto) 0.0 Abs Immat Gran (auto) 0.03 Absolute Neuts (auto) 2.4 Absolute Nucleated RBC 0.000 Band Neutrophils % Not Reportable Nucleated RBC % 0.0 Platelet Estimate Adequate Clumped Platelets Present % Immature Plt Fraction 5.1 Schistocytes None seen Sodium 137 Potassium 3.8 Chloride 104 Carbon Dioxide 30 Anion Gap 3 L BUN 8 L Creatinine 0.55 L Estim Creat Clear Calc 143 Estimated GFR > 60 Glucose 264 H POC Capillary Glucose 262 H 277 H Calcium 8.8 Magnesium 1.7 Total Bilirubin 0.2 AST 20 ALT 14 Alkaline Phosphatase 85 Total Protein 6.0 L Albumin 3.1 L Quality VTE Prophylaxis VTE prophylaxis: pharmacologic ordered (Lovenox 40 mg subQ daily)
[2025-04-03] MEDS: INSULIN GLARGINE (*BKC) 100 UNITS/ML 30 UNITS SUB-Q (21:41)
[2025-04-03 22:00] VITALS: BP 123/84; PULSE 99; RESP 16; TEMP 36.2; O2SAT 99
[2025-04-04] MEDS: SUCRALFATE SUSP 100 MG/ML 10 ML UDC 1000 MG PO ×2 (05:37→13:13)
[2025-04-04 06:00] VITALS: BP 128/92; PULSE 86; RESP 16; TEMP 36.4; O2SAT 98
[2025-04-04 07:16] LABS: Hematocrit 38.3 % (42.0-52.0); Hemoglobin 13.1 g/dL (14.0-18.0); Immature Granulocyte Percent A 0.8 % (0-0.5); Lymphocytes Absolute Auto 2.52 K/mm3 (0.9-3.2); Mean Corpuscular HGB Conc 34.2 g/dl (32-36); Mean Corpuscular Hemoglobin 29.3 pg (26-34); Mean Corpuscular Volume 85.7 fl (80-100); Nucleated Red Blood Cells Absolute Auto 0.000 K/mm3 (0.0-0.012); Nucleated Red Blood Cells Perc 0.0 % (0.0-0.2); Platelet Count Result 287 k/mm3 (150-375); Red Blood Count 4.47 M/mm3 (4.6-6.20); White Blood Count 7.3 K/mm3 (4.5-10.0)
[2025-04-04 07:35] LABS: Alanine Aminotransferase 13 U/L (6-50); Albumin Level 3.2 g/dL (3.5-5.1); Alkaline Phosphatase 88 U/L (38-126); Anion Gap 4 mmol/L (4-12); Aspartate Amino Transferase 21 U/L (17-59); Bilirubin,Total 0.4 mg/dL (0.2-1.3); Blood Urea Nitrogen 9 mg/dL (9-20); Calcium 8.8 mg/dL (8.4-10.2); Carbon Dioxide 33 mmol/L (22-30); Chloride 100 mmol/L (98-107); Estimated CRCL calculation 143 ml/min; Estimated Glomerular Filt Rate > 60; Glucose 192 mg/dL (65-110); Potassium 3.4 mmol/L (3.4-5.0); Sodium 137 mmol/L (137-145); Total Protein 6.3 g/dL (6.3-8.2)
[2025-04-04] MEDS: GABAPENTIN 100 MG CAPSULE 200 MG PO ×2 (08:40→13:13)
[2025-04-04] MEDS: PANTOPRAZOLE 40 MG TABLET PO (08:40)
[2025-04-04] MEDS: INSULIN ASPART (*BKC) 100 UNITS/ML SUB-Q ×2 (08:40→13:17)
--- NOTE | 2025-04-04 12:17 | P.DS_ITS ---
DS: Summary Time Spent with Patient Time attestation: Total time spent providing and/or coordinating discharge services: DS: Data Data Completed and Pending Labs on day of discharge: Labs from last 24 hours 04/04/25 04/04/25 04/04/25 07:39 06:43 01:42 WBC 7.3 RBC 4.47 L Hgb 13.1 L Hct 38.3 L MCV 85.7 MCH 29.3 MCHC 34.2 RDW 12.3 Plt Count 287 D MPV 9.6 Immature Gran % (Auto) 0.8 H Neut % (Auto) 51.5 Lymph % (Auto) 34.4 Stafford % (Auto) 10.6 H Eos % (Auto) 1.9 Baso % (Auto) 0.8 Lymph # (Auto) 2.52 Stafford # (Auto) 0.8 H Eos # (Auto) 0.1 Baso # (Auto) 0.1 Abs Immat Gran (auto) 0.06 H Absolute Neuts (auto) 3.8 Absolute Nucleated RBC 0.000 Band Neutrophils % Nucleated RBC % 0.0 Platelet Estimate Clumped Platelets % Immature Plt Fraction Schistocytes Sodium 137 Potassium 3.4 Chloride 100 Carbon Dioxide 33 H Anion Gap 4 BUN 9 Creatinine 0.57 L Estim Creat Clear Calc 143 Estimated GFR > 60 Glucose 192 H POC Capillary Glucose 269 H 244 H Calcium 8.8 Magnesium Total Bilirubin 0.4 AST 21 ALT 13 Alkaline Phosphatase 88 Total Protein 6.3 Albumin 3.2 L 04/03/25 04/03/25 04/03/25 20:58 16:58 12:09 WBC 4.6 RBC 4.47 L Hgb 13.2 L Hct 39.1 L MCV 87.5 MCH 29.5 MCHC 33.8 RDW 12.6 Plt Count 172 MPV 9.7 Immature Gran % (Auto) 0.7 H Neut % (Auto) 52.5 Lymph % (Auto) 35.4 Stafford % (Auto) 9.4 H Eos % (Auto) 1.1 Baso % (Auto) 0.9 Lymph # (Auto) 1.62 Stafford # (Auto) 0.4 Eos # (Auto) 0.1 Baso # (Auto) 0.0 Abs Immat Gran (auto) 0.03 Absolute Neuts (auto) 2.4 Absolute Nucleated RBC 0.000 Band Neutrophils % Not Reportable Nucleated RBC % 0.0 Platelet Estimate Adequate Clumped Platelets Present % Immature Plt Fraction 5.1 Schistocytes None seen Sodium 137 Potassium 3.8 Chloride 104 Carbon Dioxide 30 Anion Gap 3 L BUN 8 L Creatinine 0.55 L Estim Creat Clear Calc 143 Estimated GFR > 60 Glucose 264 H POC Capillary Glucose 271 H 277 H Calcium 8.8 Magnesium 1.7 Total Bilirubin 0.2 AST 20 ALT 14 Alkaline Phosphatase 85 Total Protein 6.0 L Albumin 3.1 L Discharge Plan Discharge Attending physician on discharge: Mika Woods Consulting providers: Phylicia Gutierrez; Da Renae Discharging Clinician: Jeimy Krause Patient Disposition: Home Activity: as tolerated Diet: diabetic Discharge Instructions: Please check your blood sugars 4 times per day, before meals and at bedtime. Please follow your home sliding scale dose for Humalog with meals that you asked to continue versus doing a set dose before meals. Please establish with a PCP to get refills on your medications. Continue the carafate before meals and at bedtime until the pain resolves in your esophagus. Patient Instructions: Antibiotic Form, Basic Carbohydrate Counting (DC) Patient Language: Pashto Stand Alone Forms: General Discharge Information Follow-up/Referrals: PHYSICIAN,SANDFILL OPERATOR [Primary Care Provider, Internal Medicine] Referral Note: Please call your insurance for referrals to a PCP to establish care to get refills on your medications. Do this as soon as possible on discharge. Discharge Medications: New gabapentin 100 mg Capsule 200 mg PO TID Qty: 90 0RF sucralfate 100 mg/mL Suspension 1,000 mg PO ACHS 30 Days Qty: 1200 0RF pantoprazole 40 mg Tablet,Delayed Release (Dr/Ec) 40 mg PO QAM Qty: 30 0RF calcium carbonate 500 mg calcium (1,250 mg) Tablet,Chewable 200 mg PO Q6H PRN (Reason: Indigestion) Qty: 30 0RF Continued (DME) blood-glucose meter [OneTouch Verio Flex meter] Misc Qty: 1 0RF Rx Instructions: May substitute to in-stock meter and/or covered by insurance. Use As Directed (DME) OneTouch Verio test strips Strip Qty: 1 0RF Rx Instructions: May substitute to in-stock and/or covered by insurance strips. Use as directed to check blood sugar 4 times per day. insulin lispro [Humalog KwikPen Insulin] 100 unit/mL insulin pen 1 sliding scale dose subcut TIDWMEAL Qty: 15 0RF Protocol: Insulin Corrective Low-Dose Condition: glucose < 70 mg/dl Dose/Route: Follow Hypoglycemia Order Condition: glucose 70-200 mg/dl Dose/Route: No additional insulin Condition: glucose 201-250 mg/dl Dose/Route: 2 units sub-Q Condition: glucose 251-300 mg/dl Dose/Route: 3 units sub-Q Condition: glucose 301-350 mg/dl Dose/Route: 4 units sub-Q Condition: glucose 351-400 mg/dl Dose/Route: 5 units sub-Q Condition: glucose > 400 mg/dl Dose/Route: Call MD Protocol Text: *No Correction Dose at Bedtime* Rx Instructions: 1: 15 carb ratio (DME) pen needle, diabetic 32 gauge x 5/32 Needle Qty: 1 0RF Rx Instructions: As Directed to inject insulin up to 5 times per day. (DME) lancets [[employer] Plus Lancet] 30 gauge misc Qty: 1 0RF Rx Instructions: May substitute to in-stock and/or covered by insurance lancets. Use As Directed divalproex [Depakote] 125 mg tablet,delayed release (DR/EC) 125 mg PO TID Changed insulin glargine [Lantus Solostar U-100 Insulin] 100 unit/mL (3 mL) insulin pen 30 unit SUBCUT QPM 30 Days Qty: 9 0RF Discontinued methylphenidate HCl [Metadate CD] 50 mg capsule, ER biphasic 30-70 150 mg PO QAM Patient Comments: Pt also takes 50 mg in the evening venlafaxine [Effexor XR] 150 mg capsule,extended release 24hr 150 mg PO DAILY Qty: 30 0RF gabapentin 400 mg capsule 400 mg PO TID Date of admission: 03/30/25 22:44 Primary Care Provider: PHYSICIAN,SANDFILL OPERATOR Admitting Provider: Jeniffer Wu Attending physician on admission: Jeniffer Wu Condition: Stable
--- OUTSIDE RECORDS SUMMARY | 2025-04-06 08:01 | XMS_ITS | Encounter Summary ---
Author Organization [facility] Address [address] [place] [address] Care Team Providers Care Compressed Gas Tester Name Role Phone Yohana Palomino MD Primary Care Provider [phone] Reason for Visit * Reason Onset Date Comments Blood Glucose (Sugar) Review 12/06/2017 Encounter Details Date Type Department Care Team (Late st Contact Info) Description 12/06/2017 Telephone [facility] Pediatrics - Diabetes [address] [address] Tarah Kirkland MD Blood Glucose (Sugar) Review Social History Tobacco Use Types Packs/Day Years Used Date Smoking Tobacco: Passive Smo ke Exposure - Never Smoker Smokeless Tobacco: Never Alcohol Use Standard Drinks/Week Comments No 0 (1 standard drink = 0.6 oz pur e alcohol) Sex and Gender Information Value Date Recorded Sex Assigned at Not on file Legal Sex Male 5:43 AM SUPPLIER RELATIONSHIP DIRECTOR Gender Identity Not on file Sexual Orientation [...] Steph Melendrez RN - 02/10/2018 4:02 PM SUPPLIER RELATIONSHIP DIRECTOR Mother called to review bgs. See doc flowhseet Plan per injection protocol: Decrease lunch and dinner to 1:6 Mother to call with fax number for school LIER RELATIONSHIP DIRECTOR * Telephone Encounter - Sandrine Mendez RN [...] on filedocumented in this encounter Care Teams Compressed Gas Tester Relationship Specialty Start Date End Date Yohana Palomino MD [address] [place] [address] PCP - General 09/26/09 07/21/24 documented as of this encounter
--- OUTSIDE RECORDS SUMMARY | 2025-04-06 08:01 | XMS_ITS | Encounter Summary ---
Author Organization [facility] Address [address] [facility] [place] [address] Care Team Providers Care District Director Name Role Phone Yohana Palomino MD Primary Care Provider [phone] Encounter Details Date Type Department Care Team (Late st Contact Info) Description 06/19/2018 Telephone [facility] Pediatrics - Diabetes [address] [address] Steph Melendrez RN Social History Tobacco Use Types Packs/Day Years Used Date Smoking Tobacco: Passive Smo ke Exposure - Never Smoker Smokeless Tobacco: Never Alcohol Use Standard Drinks/Week Comments No 0 (1 standard drink = 0.6 oz pur e alcohol) Sex and Gender Information Value Date Recorded Sex Assigned at Not on file Legal Sex Male 5:43 AM MANUFACTURING INSPECTOR Gender Identity Not on file Sexual Orientation [...] on filedocumented in this encounter Care Teams District Director Relationship Specialty Start Date End Date Yohana Palomino MD [address] [address] PCP - General 09/26/09 07/21/24 documented as of this encounter
--- OUTSIDE RECORDS SUMMARY | 2025-04-06 08:01 | XMS_ITS | Encounter Summary ---
Author Organization [facility] Address [address] [facility] [place] [address] Care Team Providers Care Multiple Tube Winding Machine Operator Name Role Phone Yohana Palomino MD Primary Care Provider [phone] Reason for Visit * Reason Onset Date Comments LOW BLOOD SUGAR 07/29/2018 Encounter Details Date Type Department Care Team (Late st Contact Info) Description 07/29/2018 Telephone [facility] Pediatrics - Diabetes [address] [address] Urban Fan MD [address] [place] [address] LOW BLOOD SUGAR Social History Tobacco Use Types Packs/Day Years Used Date Smoking Tobacco: Never Smokeless Tobacco: Never Alcohol Use Standard Drinks/Week Comments No 0 (1 standard drink = 0.6 oz pur e alcohol) Sex and Gender Information Value Date Recorded Sex Assigned at Not on file Legal Sex Male 5:43 AM PROPERTY DISPOSAL MANAGER Gender Identity Not on file Sexual [...] [facility] [place] [facility] * Telephone Encounter - Yong Sierra RN [...] on filedocumented in this encounter Care Teams Multiple Tube Winding Machine Operator Relationship Specialty Start Date End Date Yohana Palomino MD [address] [facility] [address] [place] [address] PCP - General 09/26/09 07/21/24 documented as of this encounter
--- OUTSIDE RECORDS SUMMARY | 2025-04-06 08:01 | XMS_ITS | Encounter Summary ---
Author Organization [facility] Address [address] [facility] [place] [address] Care Team Providers Care Office Coordinator Receptionist Name Role Phone Yohana Palomino MD Primary Care Provider [phone] Reason for Visit * Reason Onset Date Comments General 05/29/2019 Encounter Details Date Type Department Care Team (Late st Contact Info) Description 05/29/2019 Telephone [facility] Pediatrics - Diabetes Mgmt [address] [place] [address] Jose F Hua MD [address] [place] [address] General Social History Tobacco Use Types Packs/Day Years Used Date Smoking Tobacco: Every Day Cigarettes Smokeless Tobacco: Never Alcohol Use Standard Drinks/Week Comments Not Currently 0 (1 standard drink = 0.6 oz pur e alcohol) Sex and Gender Information Value Date Recorded Sex Assigned at Not on file Legal Sex Male 5:43 AM CLIMATOLOGY TEACHER Gender Identity Not on file Sexual Orientation [...] to call me with updated bgs, status. ATOLOGY TEACHER documented in this encounter Plan of Treatment Not on file documented as of this encounter Visit Diagnoses Not on filedocumented in this encounter Care Teams Office Coordinator Receptionist Relationship Specialty Start Date End Date Yohana Palomino MD [address] [address] PCP - General 09/26/09 07/21/24 documented as of this encounter
--- OUTSIDE RECORDS SUMMARY | 2025-04-06 08:01 | XMS_ITS | Encounter Summary ---
Author Organization [facility] Address [address] [facility] [address] Care Team Providers Care Freight Handler Name Role Phone Yohana Palomino MD Primary Care Provider [phone] Reason for Visit * Reason Onset Date Comments MEDICATION REFILL 11/05/2017 Encounter Details Date Type Department Care Team (Late st Contact Info) Description 11/05/2017 Refill [facility] Pediatrics - Diabetes [address] [address] Tarah Kirkland MD MEDICATION REFILL Social History Tobacco Use Types Packs/Day Years Used Date Smoking Tobacco: Passive Smo ke Exposure - Never Smoker Smokeless Tobacco: Never Alcohol Use Standard Drinks/Week Comments No 0 (1 standard drink = 0.6 oz pur e alcohol) Sex and Gender Information Value Date Recorded Sex Assigned at Not on file Legal Sex Male 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 documented in this encounter Plan of Treatment Not on file documented as of this encounter Visit Diagnoses Not on filedocumented in this encounter Care Teams Freight Handler Relationship Specialty Start Date End Date Yohana Palomino MD [address] [address] PCP - General 09/26/09 07/21/24 documented as of this encounter
--- OUTSIDE RECORDS SUMMARY | 2025-04-06 08:01 | XMS_ITS | Encounter Summary ---
Author Organization [facility] Address [address] [place] [address] Care Team Providers Care Network Systems Consultant Name Role Phone Yohana Palomino MD Primary Care Provider [phone] Reason for Visit * Reason Onset Date Comments Blood Sugar Problem 09/05/2017 Encounter Details Date Type Department Care Team (Late st Contact Info) Description 09/05/2017 Telephone [facility] Pediatrics - Diabetes Mgmt [facility] [place] [address] Genaro Abraham, DIE ASSEMBLER-GYN [address] [place] [id number] Blood Sugar Problem Social History Tobacco Use Types Packs/Day Years Used Date Smoking Tobacco: Passive Smo ke Exposure - Never Smoker Smokeless Tobacco: Never Alcohol Use Standard Drinks/Week Comments No 0 (1 standard drink = 0.6 oz pur e alcohol) Sex and Gender Information Value Date Recorded Sex Assigned at Not on file Legal Sex Male 5:43 AM LABORATORY IMMUNOLOGIST Gender Identity Not on file Sexual Orientation [...] Author No 10/07/2015 1:37 PM CDT Gita Getnile RN * Does person have difficulty doing [...] had low last night after [facility]. Mother states he was 200 [...] was told he had lows overnight at [facility] but was unsure if they were making [...] on filedocumented in this encounter Care Teams Network Systems Consultant Relationship Specialty Start Date End Date Yohana Palomino MD [address] [place] [address] PCP - General 09/26/09 07/21/24 documented as of this encounter
--- OUTSIDE RECORDS SUMMARY | 2025-04-06 08:01 | XMS_ITS | Clinical Summary ---
Author Organization [facility] Address [address] [place] [address] Care Team Providers Care Undercollar Maker Name Role Phone Unavailable Primary Care Provider Unavailabl e Source Comments [facility],non-owned Affiliates and Associated Physician Practices is amultiple site organization consisting of ambulatory clinics and hospital sitesin [place], [place], [place] and [place]. This disclosure is being madepursuant to the Care Everywhere program and may not contain all information available regarding this patient. Last updated 17.[facility] Allergies Active Allergy Reactions Criticality Noted Date [...] recently discharged on 06/25, brought in to [facility] ER by EMS after being found to [...] recently discharged on 06/25, brought in to [facility] ER by EMS after being found to [...] PIV Assessment & Plan (04/21/2019 4:38 PM MANUAL MACHINIST): Type 1 diabetes mellitus with ketoacidosis without [...] vitals with glucose checks Psych: - Consult geriatric social worker, psychology, [facility] - [facility] called this morning; has 24 hours to evaluate -- will not discharge home until at least psych follow-up appointment is established Assessment & Plan (04/20/2019 6:30 PM MANUAL MACHINIST): Type 1 diabetes mellitus with ketoacidosis without [...] vitals with glucose checks Psych: - Consult geriatric social worker, psychology, central intake Assessment & Plan (04/20/2019 10:45 AM MANUAL MACHINIST): Assessment: Denton is a known, poorly controlled, [...] tylenol - vitals q4h Psych: - Consult geriatric social worker Access: PIV Assessment & Plan (04/19/2019 11:56 AM MANUAL MACHINIST): Assessment: Denton is a known, poorly controlled, [...] emesis. BMP, NH3, CBC, urinalysis and urine [id number] screen were unremarkable, and blood negative for [...] 3.2mL twice daily. Parents are to call [phone] for follow up appointment for Genaro to be seen in 6 weeks at [facility] neurology clinic or sooner if seizures. He [...] 08/12/2008 Assessment & Plan (05/27/2019 11:10 AM MANUAL MACHINIST): Assessment: Denton Ring is a 18 year [...] Hua Assessment & Plan (02/23/2019 2:54 PM MANUAL MACHINIST): Assessment: Denton is a 18 year old [...] PIV Assessment & Plan (02/23/2019 1:35 AM MANUAL MACHINIST): Assessment: Denton is a 18 year old [...] PIV Assessment & Plan (05/02/2018 2:59 PM MANUAL MACHINIST): 1) must begin taking humalog before meals [...] September Assessment & Plan (04/13/2016 8:20 AM MANUAL MACHINIST): 1) must keep logbook daily 2) must [...] Kirkland Assessment & Plan (05/10/2015 4:40 PM MANUAL MACHINIST): Assessment: Genaro is a 14 year old male with PMH diabetes mellitus type 1 admitted for hyperglycemia and ketoacidosis. He was supposed to be admitted to behavior health at [facility] for violent behavior, but will need to [...] violent behavior, plan is for admission to [facility] once acute illness resolves - spoke with [...] consistently over 200 5) schedule eye exam [facility] [phone] 6) return in 2 months If improvement is not seen in two months should consider referral to [facility] as the home environment appears to [...] 2020 Assessment & Plan (05/27/2019 7:24 AM MANUAL MACHINIST): Assessment: Denton Ring is a 18 year [...] PIV Assessment & Plan (05/21/2019 4:34 PM MANUAL MACHINIST): Assessment: Denton is a 18 year old [...] x2 Assessment & Plan (05/20/2019 8:41 PM MANUAL MACHINIST): Assessment: Denton is a 18 year old [...] x2 Assessment & Plan (04/10/2019 4:57 PM MANUAL MACHINIST): Assessment: Denton is a known, poorly controlled, [...] Psychiatry was consulted due to psychiatric history; geriatric social worker following due to social history Assessment & Plan (04/10/2019 2:23 AM MANUAL MACHINIST): Assessment: Denton is a known, poorly controlled, [...] AM Assessment & Plan (03/27/2019 2:10 PM MANUAL MACHINIST): Denton is a 18 year old male [...] pain Assessment & Plan (03/26/2019 8:10 PM MANUAL MACHINIST): Assessment: Denton is a 18 year old [...] PIV Assessment & Plan (03/26/2019 4:11 PM MANUAL MACHINIST): Assessment: Denton is a 18 year old [...] PIV Assessment & Plan (03/26/2019 1:25 PM MANUAL MACHINIST): Assessment: Denton is a 18 year old [...] PIV Assessment & Plan (03/26/2019 9:17 AM MANUAL MACHINIST): Denton is a 18 year old male [...] PIV Assessment & Plan (03/26/2019 5:26 AM MANUAL MACHINIST): Denton is a 18 year old male [...] on file Legal Sex Male 5:43 AM MANUAL MACHINIST Gender Identity Not on file Sexual Orientation [...] URINE RANDOM PANEL Routine 04/18/2017 2:46 PM MANUAL MACHINIST Type 1 diabetes mellitus without complication from Last 3 Months or Most Recently Relevant to Health Maintenance Results * (ABNORMAL) HEMOGLOBIN A1C (2019 3:34 AM CDT) Hemoglobin A1c 16.9(H) 3.4 - 6.1 % 2019 4:10 AM CDT [facility] Estimated Average Glucose 438 mg/dL 2019 4:10 AM CDT [facility] Blood BLOOD SPECIMEN / Unknown Venipuncture / Unknown 2019 3:34 AM CDT 2019 3:43 AM CDT Steph Taveras DO LAB - CHEMISTRY ORDERABLE S Final Result Performing Organization Address City/State/[facility] Co de Phone Number [facility] [address] [place] [phone] * (ABNORMAL) COMPREHENSIVE METABOLIC PANEL (2019 3:31 AM CDT) Glucose 605(HH) 70 - 105 mg/dL 2019 4:27 AM CDT [facility] Comment:Repeated and Verifie d. Sodium 130(L) 136 - 145 mmol/L 2019 4:27 AM CDT [facility] Potassium 4.6 3.5 - 5.1 mmol/L 2019 4:27 AM CDT [facility] Chloride 93(L) 98 - 107 mmol/L 2019 4:27 AM [facility] CO2 <5(LL) 20 - 28 mmol/L 2019 4:27 AM [facility] Comment:Repeated and Verifie d. Calcium 10.13 9.08 - 10.48 mg/dL 2019 4:27 AM [facility] Anion Gap 2019 4:27 AM [facility] Comment: Assay measuring below lower limits of linearity, calculated result not valid in this circumstance. BUN 16.8 5.3 - 18.7 mg/dL 2019 4:27 AM [facility] Creatinine 1.00 0.61 - 1.07 mg/dL 2019 4:27 AM [facility] Alkaline Phosphatase 154 100 - 390 U/L 2019 4:27 AM [facility] ALT 18 6 - 46 U/L 2019 4:27 AM [facility] AST 10 3 - 35 U/L 2019 4:27 AM [facility] Protein Total 9.1(H) 6.3 - 8.2 gm/dL 2019 4:27 AM [facility] Albumin 4.8 3.3 - 4.9 gm/dL 2019 4:27 AM [facility] Bilirubin Total 0.2(L) 0.3 - 1.2 mg/dL 2019 4:27 AM [facility] eGFR by MDRD 2019 4:27 AM [facility] Comment: eGFR calculations are not performed for children under 18 years old. eGFR by MDRD 2019 4:27 AM [facility] Comment: eGFR calculations are not performed for children under 18 years old. Blood BLOOD SPECIMEN / Unknown Venipuncture / Unknown 2019 3:31 AM CDT 2019 3:43 AM [facility] us Steph Taveras DO LAB - CHEMISTRY ORDERABLE S Final Result [facility] [address] [place] [address] * MICROALB/CREAT RATIO URINE RANDOM PANEL (04/18/2017 2:46 PM MANUAL MACHINIST) Creatinine Urine 26.83 mg/dL 04/18/19 18 3:33 PM MANUAL MACHINIST [facility] Microalbumin Urine <0.5 <1.7 mg/dL 04/18/2017 3:33 PM MANUAL MACHINIST [facility] Microalbumin/Crea tinine Ratio <19 <30 mg/g 04/18/2017 3:33 PM MANUAL MACHINIST [facility] Urine URINE SPECIMEN OBTAINED BY CLEAN CATCH PROCEDURE / Unknown Collection / Unknown 04/18/2017 2:46 PM MANUAL MACHINIST 04/18/2017 2:54 PM MANUAL MACHINIST Tarah Kirkland MD LAB - URINE CHEMISTRY ORDERABLE S Final Result Performing Organization Address City/State/[facility] Co de Phone Number [facility] [address] [place] [address] from Last 3 Months or Most Recently Relevant to Health Maintenance Insurance [place]ID - [place] [facility] MEDICAID - OUT OF STATE Advance [...]
--- OUTSIDE RECORDS SUMMARY | 2025-04-06 08:01 | XMS_ITS | Encounter Summary ---
Author Organization [facility] Address [address] [facility] [place] [address] Care Team Providers Care Roll Panner Name Role Phone Yohana Palomino MD Primary Care Provider [phone] Reason for Visit * Reason Onset Date Comments MEDICATION REFILL 05/13/2017 Encounter Details Date Type Department Care Team (Late st Contact Info) Description 05/13/2017 Refill [facility] Pediatrics - Endocrinology [address] [place] [address] Genaro Abraham, VISUAL INSPECTOR-INFORMATION MANAGEMENT OFFICER [address] [place] [id number] MEDICATION REFILL Social History Tobacco Use Types Packs/Day Years Used Date Smoking Tobacco: Passive Smo ke Exposure - Never Smoker Smokeless Tobacco: Never Alcohol Use Standard Drinks/Week Comments No 0 (1 standard drink = 0.6 oz pur e alcohol) Sex and Gender Information Value Date Recorded Sex Assigned at Not on file Legal Sex Male 5:43 AM SLEEP MANAGER Gender Identity Not on file Sexual [...] on filedocumented in this encounter Care Teams Roll Panner Relationship Specialty Start Date End Date Yohana Palomino MD [address] [address] PCP - General 09/26/09 07/21/24 documented as of this encounter
--- OUTSIDE RECORDS SUMMARY | 2025-04-06 08:01 | XMS_ITS | Encounter Summary ---
Author Organization [facility] Address [address] [facility] [place] [address] Care Team Providers Care Vibrating Screed Operator Name Role Phone Yohana Palomino MD Primary Care Provider [phone] Reason for Visit * Reason Onset Date Comments MEDICATION REFILL 05/20/2017 Encounter Details Date Type Department Care Team (Late st Contact Info) Description 05/20/2017 Refill [facility] Pediatrics - Endocrinology [address] [place] [address] Genaro Abraham, FISH CONSERVATIONIST-SMOKING TOBACCO PACKING MACHINE HAND [address] [place] [id number] MEDICATION REFILL Social History Tobacco Use Types Packs/Day Years Used Date Smoking Tobacco: Passive Smo ke Exposure - Never Smoker Smokeless Tobacco: Never Alcohol Use Standard Drinks/Week Comments No 0 (1 standard drink = 0.6 oz pur e alcohol) Sex and Gender Information Value Date Recorded Sex Assigned at Not on file Legal Sex Male 5:43 AM TIME STUDY ANALYST Gender Identity Not on file Sexual Orientation [...] complication documented in this encounter Care Teams Vibrating Screed Operator Relationship Specialty Start Date End Date Yohana Palomino MD [address] [address] PCP - General 09/26/09 07/21/24 documented as of this encounter
--- OUTSIDE RECORDS SUMMARY | 2025-04-06 08:01 | XMS_ITS | Encounter Summary ---
Author Organization [facility] Address [address] [facility] [place] [address] Care Team Providers Care Counsellors Name Role Phone Yohana Palomino MD Primary Care Provider [phone] Reason for Visit * Reason Onset Date [...] (Late st Contact Info) Description 09/29/2009 Telephone [facility] Pediatrics - Diabetes Mgmt [address] [place] [address]. 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
--- OUTSIDE RECORDS SUMMARY | 2025-04-06 08:01 | XMS_ITS | Encounter Summary ---
Author Organization [facility] Address [address] [facility] [place] [address] Care Team Providers Care Mold Dumper Name Role Phone Yohana Palomino MD Primary Care Provider [phone] Encounter Details Date Type Department Care Team (Late st Contact Info) Description 04/20/2019 Telephone [facility] Pediatrics - Diabetes Mgmt [address] [place] [address] Kaitlyn Vieira, DO [address] [place] [id number] Social History Tobacco Use Types Packs/Day Years Used Date Smoking Tobacco: Every Day Smokeless Tobacco: Never Alcohol Use Standard Drinks/Week Comments Yes 0 (1 standard drink = 0.6 oz pur e alcohol) Sex and Gender Information Value Date Recorded Sex Assigned at Not on file 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 Answer Date of Assessment Author No 04/20/2019 2:30 AM CONSTRUCTION IRONWORKER Gloria Qiu RN * Is person blind [...] Steph Melendrez RN - 04/29/2019 9:40 AM CONSTRUCTION IRONWORKER Called and spoke with Chaz, current caregiver. [...] Reviewed contact information and how to call. TRUCTION IRONWORKER * Telephone Encounter - Kaitlny Vieira DO - 04/22/2019 10:30 AM CONSTRUCTION IRONWORKER Psychiatrist Alexandria Thomas returned my call personally. [...] mom and asked that she do that. TRUCTION IRONWORKER * Telephone Encounter - Kaitlyn Vieira DO - 04/22/2019 10:02 AM CONSTRUCTION IRONWORKER I called mom and she gave verbal consent by phone to speak with psychiatrist at [facility]. Psychiatrist is MARIANNE Thomas, and appointment is 04/29/19 at 4 PM. I attempted to call Alexandria Thomas's office. No answer. LMOM to call back and left numbers. TRUCTION IRONWORKER * Telephone Encounter - Kaitlyn Vieira DO - 04/21/2019 10:44 AM CONSTRUCTION IRONWORKER I called Denton's mom as requested with update on status. Discussed that he will be here for remainder of today and will possibly go home tomorrow. Discussed psychology seeing Denton. Mom expressed concern that he is intentionally trying to get admitted to the hospital repeatedly. TRUCTION IRONWORKER * Telephone Encounter - Maddy Gross RN - 04/20/2019 4:54 PM CST I reached out to Chaz [phone] (Genaro's cousin) who he has been living [...] would be in contact if anything changes. TRUCTION IRONWORKER documented in this encounter Plan of Treatment Not on file documented as of this encounter Visit Diagnoses Not on filedocumented in this encounter Care Teams Mold Dumper Relationship Specialty Start Date End Date Yohana Palomino MD [address] [facility] [address] [place] [address] PCP - General 09/26/09 07/21/24 documented as of this encounter
--- NOTE | 2025-04-07 14:52 | PCCDE ---
04/07/25: DM educator attempted courtesy follow up call. Outbound message stating different name (Zahra) - No message left.
== END 2025-04-04 14:44 | disposition home or self-care (01) ==
LOC: ANHED 22:12 → ANHICU 03-31 11:20 → ANH3MEDSUR 04-02 11:59 → ANHICU 04-06 07:59
PROVIDERS: Internal Medicine Critical Care Medicine; Nurse Practitioner; Nurse Practitioner Adult Health; Physician Assistant; Admitting Provider Internal Medicine; Emergency Provider Emergency Medicine; Visit Provider Internal Medicine
DX: E10.10 Type 1 diabetes mellitus with ketoacidosis without coma (principal); Z79.4 Long term (current) use of insulin; E43 Unspecified severe protein-calorie malnutrition; Z68.1 Body mass index [BMI] 19.9 or less, adult; Z59.00 Homelessness unspecified; Z20.822 Contact with and (suspected) exposure to COVID-19; Z91.141 Patient's other noncompliance with medication regimen due to financial hardship
CPT/HCPCS: 36415; 71045; 71260; 74177; 80048; 80053; 80069; 80307; 81003; 82010; 82040; 82803; 82948; 83036; 83605; 83735; 84100; 85025; 85027; 85055; 86703; 87637; 87641; 96361; 96366; 96368; 96372; 96374; 96375; 96376; 99285; A9270; G0378; G0379; G0432; J1650; J1815; J2405; J3480; J7030; J7040; Q9967